=== PATIENT | female | born 1960 | race Caucasian/White ===

== ENCOUNTER 2016-06-06 12:21 | Emergency (ER) | payer OTHER, MEDICAID ==
[~2016-06-06] VITALS: Ht 154.9 cm; Wt 59.0 kg
[2016-06-06 12:36] VITALS: BP 168/81; PULSE 91; RESP 20; TEMP 97.8; O2SAT 100
--- NOTE | 2016-06-06 12:45 | NUR ---
Pt placed to ER waiting room in stable condition. Family members with pt.
[2016-06-06] MEDS ORDERED: DIPH-TET-PERTUS Vaccine 0.5 ML VIAL (ADACEL) I.M. ONE (13:30)
[2016-06-06] MEDS ORDERED: LORazepam 2 MG/ML VIAL (FOR ER USE) IM ONE ×2 (13:30→14:45)
--- NOTE | 2016-06-06 14:00 | NUR ---
PT. PLACED IN ROOM 6, ASSUMED CARE, PT. WAS BROUGHT IN BY ADMIN OF THE RESIDENCE S/P FALL LAC TO BACK OF HER HEAD RIGHT SIDED, PER FEMALE ADMIN PT. FELL AT 1115 THIS MORNING IN THE KITCHEN, NO ACUTE DISTRESS NOTED, PT. SEEMS A BIT AGIGATED OTHERWISE STABLE
--- NOTE | 2016-06-06 14:10 | NUR ---
dr. martins at bedside examining the pt.
--- NOTE | 2016-06-06 14:15 | NUR ---
PAIN MEDICATED TOLERATED WELL, NO DISTRESS NOTED
--- NOTE | 2016-06-06 14:24 | NUR ---
PT. OUT TO HEAD CT VIA GINO WITH RAY
[2016-06-06] MEDS ORDERED: BACITRACIN 1 GM OINT TP ONE (14:30)
--- NOTE | 2016-06-06 14:35 | NUR ---
pt. back from ct via wheelchair, calm and cooperative
[2016-06-06 15:20] VITALS: BP 132/67; PULSE 71; RESP 15; TEMP 97.9; O2SAT 98
--- NOTE | 2016-06-06 15:20 | NUR ---
Patient given written and verbal discharge instructions and verbalizes understanding. ER MD DR. CHAVEZ discussed with patient the results and treatment provided. Patient in stable condition. ID arm band removed. no Rx given. Patient educated on pain management and to follow up with PMD. Pain Scale 0/10 Opportunity for questions provided and answered.
== END 2016-06-06 15:20 | disposition home or self-care (01) ==
LOC: SED 12:21
DX: S01.01XA Laceration without foreign body of scalp, initial encounter (principal); W01.190A Fall on same level from slipping, tripping and stumbling with subsequent striking against furniture, initial encounter; Y93.89 Activity, other specified; Y92.89 Other specified places as the place of occurrence of the external cause; Y99.8 Other external cause status
CPT/HCPCS: 12002; 70450; 90471; 90715; 96372; 99284; J2060

== ENCOUNTER 2017-03-02 14:15 | Emergency (ER) | payer OTHER, MEDICAID ==
[~2017-03-02] VITALS: Ht 157.5 cm; Wt 68.9 kg
[2017-03-02 14:15] VITALS: BP_SYST 157
[2017-03-02 15:50] VITALS: BP_SYST 126
== END 2017-03-02 15:50 | disposition home or self-care (01) ==
LOC: SED 14:15
DX: S50.352A Superficial foreign body of left elbow, initial encounter (principal); L03.114 Cellulitis of left upper limb; F41.9 Anxiety disorder, unspecified; X58.XXXA Exposure to other specified factors, initial encounter; Y93.89 Activity, other specified; Y92.89 Other specified places as the place of occurrence of the external cause; Y99.8 Other external cause status
CPT/HCPCS: 99284

== ENCOUNTER 2017-04-16 17:36 | Emergency (ER) | payer OTHER, MEDICAID ==
[~2017-04-16] VITALS: Ht 162.6 cm; Wt 69.9 kg
[2017-04-16 17:45] VITALS: BP_SYST 163
[2017-04-16] MEDS ORDERED: BACITRACIN 1 GM OINT TP ONE (18:30)
== END 2017-04-16 18:47 | disposition home or self-care (01) ==
LOC: SED 17:36
DX: S01.01XA Laceration without foreign body of scalp, initial encounter (principal); F41.9 Anxiety disorder, unspecified; R03.0 Elevated blood-pressure reading, without diagnosis of hypertension; Z86.59 Personal history of other mental and behavioral disorders; W18.30XA Fall on same level, unspecified, initial encounter; Y93.89 Activity, other specified; Y92.89 Other specified places as the place of occurrence of the external cause; Y99.8 Other external cause status
CPT/HCPCS: 99283

== ENCOUNTER 2018-05-04 09:01 | Emergency (ER) | payer OTHER, MEDICAID ==
[~2018-05-04] VITALS: Ht 160 cm; Wt 68.0 kg
[2018-05-04 09:05] VITALS: BP_SYST 155
[2018-05-04] MEDS ORDERED: LORazepam 2 MG/ML VIAL (FOR ER USE) IM ONE (09:30)
[2018-05-04] MEDS ORDERED: HALOPERIDOL LACTATE 5 MG/ML VIAL ONE (09:44)
[2018-05-04] MEDS ORDERED: DIPHENHYDRAMINE INJ 50 MG/ML VIAL IM ONE ×2 (09:45→10:00)
[2018-05-04] MEDS ORDERED: HALOPERIDOL LACTATE 5 MG/ML VIAL IM ONE ×2 (09:45→10:00)
[2018-05-04] MEDS ORDERED: GASTROGRAFIN 120 ML ONE (10:44)
[2018-05-04 11:52] VITALS: BP_SYST 152
== END 2018-05-04 11:52 ==
LOC: SED 09:01
DX: Z41.3 Encounter for ear piercing (principal); F41.9 Anxiety disorder, unspecified; I48.91 Unspecified atrial fibrillation
CPT/HCPCS: 43762; 74240; 96372; 99284; J1200; J1630; J2060; Q9963

== ENCOUNTER 2020-11-29 14:03 | Inpatient (IN) | payer OTHER, MEDICAID, SELFPAY ==
[~2020-11-29] VITALS: Ht 160 cm; Wt 79.1 kg
[2020-11-29 14:10] VITALS: BP_SYST 148
--- NOTE | 2020-11-29 14:15 | NUR ---
Patient to ER bed 6 to gown for evaluation. Side rails up.
--- NOTE | 2020-11-29 14:20 | NUR ---
PT BIB HER MOTHER FOR INCREASING SOB AND LETHARGY SINCE TODAY IN THE AM. PT LIVES AT A [facility] AND THE STAFF AT THE HOME NOTICED THAT THE PT LABORED BREATHING AND WAS LESS ACTIVE THAN USUAL. UPON ARRIVAL PT'S O2 SAT WAS 78-88% ON RA. PT HAS A PRODUCTIVE COUGH. CURRENT OS SAT IS REMAINS AT 88% ON A 100% NON-RBREATHER.
--- NOTE | 2020-11-29 14:21 | NUR ---
ER at bedside examining patient.
--- NOTE | 2020-11-29 14:22 | NUR ---
# 20 gauge angiocath placed to lac. Use of asceptic technique. Opsite placed over site. Blood return noted. Blood for lab drawn from site. Flushed with 10 cc of normal saline. No evidence of infiltration noted. Patient tolerated well.
--- NOTE | 2020-11-29 14:34 | NUR ---
covid and mrsa swab performed at bedside
--- NOTE | 2020-11-29 14:42 | NUR ---
CURRENT O2 SAT IS 94% ON 100% NON-REBREATHER
[2020-11-29 14:43] LABS: BASOPHILS % (AUTO) 0.2 % (0.0-2.0); EOSINOPHILS # (AUTO) 0.1 K/uL (0.0-0.4); EOSINOPHILS % (AUTO) 0.5 % (0.0-4.0); HEMATOCRIT 43.2 % (36-48); HEMOGLOBIN 13.5 g/dL (12.0-16.0); LYMPHOCYTES # (AUTO) 2.1 K/uL (1.0-5.5); LYMPHOCYTES % (AUTO) 18.8 % (20.5-51.5); MEAN CORPUSCULAR HEMOGLOBIN 24 pg (27-31); MEAN CORPUSCULAR HGB CONC 31 % (32-36); MEAN CORPUSCULAR VOLUME 77 fL (79.0-98.0); MONOCYTES # (AUTO) 1.1 K/uL (0.0-1.0); MONOCYTES % (AUTO) 10.4 % (1.7-9.3); NEUTROPHILS # (AUTO) 7.7 K/uL (1.8-7.7); NEUTROPHILS % (AUTO) 70.1 % (40.0-70.0); PLATELET COUNT (AUTO) 209 K/uL (130-430); RED CELL DISTRIBUTION WIDTH 17.4 % (9.0-15.0)
[2020-11-29] MEDS ORDERED: NACL 0.9% 1,000 ML IV ONE (14:45)
--- NOTE | 2020-11-29 14:52 | NUR ---
RT AT THE BEDSIDE
--- NOTE | 2020-11-29 14:52 | NUR ---
MRSA swab at bedside, sent to lab
[2020-11-29 14:57] LABS: INR 1.1 (0.8-1.2); PROTHROMBIN TIME 11.3 SECS (9.5-12.5)
[2020-11-29] MEDS ORDERED: IPRATROPIUM/ALBUTEROL SULFATE 3 ML AMPUL.NEB (DUONEB) ONE (14:58)
--- NOTE | 2020-11-29 15:10 | NUR ---
# 16 FR Camacho catheter with use of sterile technique. Immediate return of 50 cc yellow urine noted. Bedside drainage bag placed below level of bladder. Urine sample collected and sent to lab. Pt tolerated procedure well. Patient arrived with camacho in place, changed due to standard of practice prior to admission. Patient unable to toilet self.
--- NOTE | 2020-11-29 15:17 | NUR ---
pt placed on Bipap 12/5, 100% Fio2
[2020-11-29] MEDS ORDERED: ASPI-1155 PO (15:40)
[2020-11-29] MEDS ORDERED: SENN8.6T19 PO (15:40)
[2020-11-29] MEDS ORDERED: SERT25TA PO (15:40)
[2020-11-29] MEDS ORDERED: CICL90CR10 TP (15:40)
[2020-11-29] MEDS ORDERED: LEVO125T PO (15:40)
[2020-11-29] MEDS ORDERED: LACT1CAP89 PO (15:40)
[2020-11-29] MEDS ORDERED: METO-442 PO (15:40)
[2020-11-29] MEDS ORDERED: CRAN450T9 PO (15:40)
[2020-11-29] MEDS ORDERED: [UNRECOGNIZED DRUG - CODE] PO (15:40)
[2020-11-29] MEDS ORDERED: PYRI100T22 PO (15:40)
[2020-11-29] MEDS ORDERED: LORA-258 PO (15:40)
[2020-11-29] MEDS ORDERED: RESEYE OP (15:40)
[2020-11-29] MEDS ORDERED: MELA5TAB12 PO (15:40)
[2020-11-29] MEDS ORDERED: LOP600 PO (15:40)
[2020-11-29] MEDS ORDERED: COLL100 PO (15:40)
[2020-11-29] MEDS ORDERED: CHOL500051 PO (15:40)
[2020-11-29] MEDS ORDERED: DIGO125T PO (15:40)
[2020-11-29] MEDS ORDERED: OMEP20CA15 PO (15:40)
[2020-11-29] MEDS ORDERED: DIVA250T PO (15:40)
[2020-11-29] MEDS ORDERED: TORBREX OP (15:41)
[2020-11-29] MEDS ORDERED: ACET-73 PO (15:41)
[2020-11-29] MEDS ORDERED: OLAN2.5T29 PO (15:41)
[2020-11-29] MEDS ORDERED: PHEDM120 PO (15:41)
--- NOTE | 2020-11-29 15:41 | NUR ---
Medication reconciliation completed with information provided by pt's mother. Any prior medication reconciliation on file was reviewed and corrected.
[2020-11-29] MEDS ORDERED: AZITHROMYCIN 500 MG in NS 250 ML IV ONE (15:45)
[2020-11-29] MEDS ORDERED: PIPERACILLIN/TAZO 3.375 GM in NS 50 ML IV ONE (15:45)
[2020-11-29] MEDS ORDERED: VANCOMYCIN HCL 1,000 MG in NS 250 ML IV ONE (15:45)
[2020-11-29 15:50] LABS: DIGOXIN 0.7 ng/mL (0.80-2.00)
[2020-11-29 15:51] LABS: CALCIUM 8.7 mg/dL (8.4-11.0); CREATININE 0.83 mg/dL (0.55-1.30); TOTAL BILIRUBIN 0.3 mg/dL (0.0-1.0)
[2020-11-29 15:52] LABS: ALBUMIN 3.5 g/dL (3.4-4.8)
[2020-11-29] MEDS ORDERED: PIPERACILLIN/TAZOBACTAM 3.375 GM/VIAL (ZOSYN) IV ONE (15:57)
[2020-11-29] MEDS ORDERED: AZITHROMYCIN 500 MG/VIAL (ZITHROMAX) IV ONE (15:58)
[2020-11-29] MEDS ORDERED: VANCOMYCIN HCL 1000 MG/VIAL IV ONE (16:15)
[2020-11-29 16:35] LABS: BILIRUBIN,URINE NEGATIVE (NEGATIVE); BLOOD, URINE NEGATIVE (NEGATIVE); COLOR,URINE YELLOW (YELLOW); GLUCOSE,URINE NEGATIVE (NEGATIVE); KETONES,URINE NEGATIVE (NEGATIVE); LEUKOCYTE ESTERASE ,URINE 2+ (NEGATIVE); NITRITE, URINE NEGATIVE (NEGATIVE); PROTEIN URINE TRACE (NEGATIVE); UROBILINOGEN,URINE 0.2 (0.2-1.0)
[2020-11-29 16:50] LABS: CLARITY/URINE HAZY (CLEAR)
[2020-11-29 17:00] LABS: RBC,URINE 0-3 /HPF (0-3)
[2020-11-29 17:01] LABS: BACTERIA,URINE MANY /HPF (None Seen)
[2020-11-29 17:05] LABS: MUCUS,URINE 1+ /LPF (None Seen)
--- NOTE | 2020-11-29 17:10 | NUR ---
ADMISSION ORDERS RECEIVED FROM DR. LOZANO
[2020-11-29] MEDS ORDERED: D5/0.45 NS 1,000 ML IV SCH (17:15)
[2020-11-29] MEDS ORDERED: AZITHROMYCIN 500 MG in NS 250 ML IV SCH (17:15)
[2020-11-29] MEDS ORDERED: ENOXAPARIN SODIUM 80 MG/0.8 ML SYRINGE SUBCUT ONE (17:15)
[2020-11-29] MEDS ORDERED: D5NS 500 ML IV SCH (18:00)
[2020-11-29] MEDS ORDERED: IPRATROPIUM/ALBUTEROL SULFATE 3 ML AMPUL.NEB (DUONEB) INH PRN (18:00)
[2020-11-29] MEDS ORDERED: D5NS 1,000 ML IV SCH (19:00)
--- NOTE | 2020-11-29 19:20 | NUR ---
report given to Susie GARZA. Pt is currently a PUI ICU hold
--- NOTE | 2020-11-29 19:32 | NUR ---
Covid-19 PCR swabs collected and sent to lab.
--- NOTE | 2020-11-29 19:49 | NUR ---
ER Hakan Lin at bedside examining patient.
[2020-11-29 20:54] LABS: C-REACTIVE PROTEIN QUANT < 0.2 mg/dL (0-0.5)
[2020-11-29] MEDS: D5NS 1,000 ML IV SCH (21:24)
--- NOTE | 2020-11-29 21:31 | NUR ---
Patient is sleeping, no acute distress.
[2020-11-29] MEDS: methylPREDNISolone SOD SUCC/PF 62.5 MG/ML VIAL IVP SCH (21:56)
--- NOTE | 2020-11-29 22:01 | NUR ---
Re- position patient.
--- NOTE | 2020-11-29 22:14 | NUR ---
Oxygen sat 85-88 % with Bipap FIo2 100 % , called RT to re-set Bipap.
--- NOTE | 2020-11-29 22:28 | NUR ---
Spoke and reported to with Dr. Byrne, telephone order Ativan 1 mg IV stat and prn.
[2020-11-29] MEDS ORDERED: LORazepam 2 MG/ML VIAL ONE (22:46)
--- NOTE | 2020-11-29 23:21 | NUR ---
Re-position patient, Dr. Prasad exam patient at bedside. Oxygen sat 89-91 % with Bipap, patient is sleeping.
[2020-11-29] MEDS ORDERED: FUROSEMIDE 40 MG/4 ML VIAL IVP ONE (23:45)
[2020-11-29] MEDS ORDERED: DILTIAZEM HCL 25 MG/5 ML VIAL IVP ONE (23:45)
--- NOTE | 2020-11-30 00:09 | NUR ---
Started Dilitiazem 10 mg IV as order by Dr. Prasad.
--- NOTE | 2020-11-30 00:19 | NUR ---
HR 87, BP 107/69, RR 28, Oxygen sat 94 % with Bipap 100 % .
[2020-11-30 00:44] VITALS: BP_SYST 106
[2020-11-30] MEDS: IPRATROPIUM/ALBUTEROL SULFATE 3 ML AMPUL.NEB (DUONEB) INH SCH ×4 (01:00→19:00)
[2020-11-30] MEDS: PIPERACILLIN/TAZO 3.375/DEX-IS 50 ML IV SCH ×4 (01:09→17:56)
[2020-11-30] MEDS ORDERED: PIPERACILLIN/TAZOBACTAM 3.375 GM/VIAL (ZOSYN) IV ONE ×2 (01:10→06:06)
--- NOTE | 2020-11-30 01:16 | NUR ---
Patient resting quietly. No acute distress noted. Vital signs within normal range.
[2020-11-30] MEDS ORDERED: IOHEXOL 350 mgI/mL, 150 ML INFUS..BTL IV ONE (01:46)
--- NOTE | 2020-11-30 02:18 | NUR ---
Patient came back from CT scan with surgical technology instructor and RN.
--- NOTE | 2020-11-30 02:20 | NUR ---
Re-peat EKG at bedside by EMT.
--- NOTE | 2020-11-30 02:24 | NUR ---
Empty urine bag 700 ML
--- NOTE | 2020-11-30 03:21 | NUR ---
Patient is sleeping, no acute distress.
--- NOTE | 2020-11-30 06:27 | NUR ---
Patient resting quietly. No acute distress noted. Vital signs within normal range.
[2020-11-30] MEDS: methylPREDNISolone SOD SUCC/PF 62.5 MG/ML VIAL IVP SCH ×3 (06:30→20:00)
--- NOTE | 2020-11-30 06:40 | NUR ---
Empty urine bag 680 ML.
[2020-11-30] MEDS ORDERED: VANCOMYCIN HCL 1000 MG/VIAL IV ONE (08:25)
[2020-11-30] MEDS: D5NS 1,000 ML IV SCH ×2 (08:27→20:00)
[2020-11-30] MEDS: VANCOMYCIN HCL 1,000 MG in NS 250 ML IV SCH ×2 (08:28→20:00)
--- NOTE | 2020-11-30 08:39 | NUR ---
Paged Dr. Byrne to inform him of ABG results.
[2020-11-30 08:41] LABS: BASOPHILS % (AUTO) 0.2 % (0.0-2.0); HEMATOCRIT 41.8 % (36-48); HEMOGLOBIN 12.8 g/dL (12.0-16.0); LYMPHOCYTES # (AUTO) 0.9 K/uL (1.0-5.5); LYMPHOCYTES % (AUTO) 6.8 % (20.5-51.5); MEAN CORPUSCULAR HEMOGLOBIN 24 pg (27-31); MEAN CORPUSCULAR HGB CONC 31 % (32-36); MEAN CORPUSCULAR VOLUME 78 fL (79.0-98.0); MONOCYTES # (AUTO) 0.3 K/uL (0.0-1.0); NEUTROPHILS # (AUTO) 12.7 K/uL (1.8-7.7); PLATELET COUNT (AUTO) 171 K/uL (130-430); RED BLOOD CELL COUNT(AUTO) 5.33 MIL/uL (4.2-6.2); RED CELL DISTRIBUTION WIDTH 17.8 % (9.0-15.0); WHITE BLOOD COUNT (AUTO) 13.9 K/uL (4.8-10.8)
[2020-11-30] MEDS: PANTOPRAZOLE SODIUM 40 MG/VIAL (PROTONIX) IVP SCH (08:45)
--- NOTE | 2020-11-30 08:52 | NUR ---
chest xray done at bedside, spoke with Dr. Byrne orders to change setting on bipap
[2020-11-30] MEDS ORDERED: PIPERACILLIN/TAZO 3.375/DEX-IS 50 ML IV SCH (09:00)
[2020-11-30 09:40] LABS: CREATININE 0.94 mg/dL (0.55-1.30); POTASSIUM 4.4 mmol/L (3.5-5.1)
--- NOTE | 2020-11-30 09:46 | NUR ---
rt notes 0946 per ABG results, Dr. Byrne ordered IPAP-EPAP settings to 20/8. Pt tolerating bipap changes, will continue to monitor pt. pt saturating 97%. RN Mary aware of changes.
[2020-11-30 09:59] LABS: ALBUMIN 2.9 g/dL (3.4-4.8); PHOSPHORUS 4.1 mg/dL (2.7-4.5); TOTAL BILIRUBIN 0.3 mg/dL (0.0-1.0)
[2020-11-30 10:35] LABS: C-REACTIVE PROTEIN QUANT 5.6 mg/dL (0-0.5)
--- NOTE | 2020-11-30 11:01 | NUR ---
mother at bedside, POC reviewed
[2020-11-30] MEDS: LORazepam 2 MG/ML VIAL IVP PRN ×2 (14:04→22:19)
--- NOTE | 2020-11-30 14:15 | NUR ---
Positioned pt. from [facility] to hospital bed for comfort, became mildly agitated, ativan given, mother remains at bedside.
--- NOTE | 2020-11-30 15:16 | NUR ---
Emptied 250 ml. urine, pt. calm visiting with mom
[2020-11-30] MEDS: AZITHROMYCIN 500 MG in NS 250 ML IV SCH (15:37)
--- NOTE | 2020-11-30 19:04 | NUR ---
emptied 60 ml of urine, will endorse to on coming shift.
--- NOTE | 2020-11-30 19:15 | NUR ---
REPORT RECEIVED FROM ISIS GARZA. PT IS CURRENTLY ON BIPAP 19/11, 90% FIO2. IV SITE IS TO THE LAC 20G PATENT AND INFUSING WELL. KLEIN CATH IS TO GRAVITY DRAINING YELLOW URINE. PT IS A-FIB ON THE MONITOR W/ A RATE OF 128.
--- NOTE | 2020-11-30 22:10 | NUR ---
medicated the pt w/ Ativan 1mg
--- NOTE | 2020-11-30 23:30 | NUR ---
Report recieved from KAYLA De Leon for continuation of care.
--- NOTE | 2020-11-30 23:35 | NUR ---
care endorsed to Manoj GARZA
[2020-12-01] VITALS (10 sets, daily range): BP systolic 96–123
[2020-12-01] MEDS: PIPERACILLIN/TAZO 3.375/DEX-IS 50 ML IV SCH ×4 (00:03→18:03)
--- NOTE | 2020-12-01 01:15 | NUR ---
Heart rate reported to Dr. Leon, orders recieved.
[2020-12-01] MEDS: IPRATROPIUM/ALBUTEROL SULFATE 3 ML AMPUL.NEB (DUONEB) INH SCH ×4 (01:26→19:53)
[2020-12-01] MEDS: LORazepam 2 MG/ML VIAL IVP PRN ×3 (02:06→14:46)
--- NOTE | 2020-12-01 02:53 | NUR ---
Heart rate reported to Dr. Leon, orders recieved.
[2020-12-01] MEDS ORDERED: NACL 0.9% 1,000 ML IV ONE ×2 (03:00→05:15)
--- NOTE | 2020-12-01 05:02 | NUR ---
Heart rate reported to Dr. Leon. Orders received.
--- NOTE | 2020-12-01 06:00 | NUR ---
300 mL of urine removed from camacho catheter.
[2020-12-01] MEDS: methylPREDNISolone SOD SUCC/PF 62.5 MG/ML VIAL IVP SCH ×3 (06:09→21:03)
[2020-12-01 06:53] LABS: BASOPHILS % (AUTO) 0.1 % (0.0-2.0); HEMATOCRIT 39.8 % (36-48); HEMOGLOBIN 11.7 g/dL (12.0-16.0); LYMPHOCYTES # (AUTO) 1.1 K/uL (1.0-5.5); MEAN CORPUSCULAR HEMOGLOBIN 23 pg (27-31); MEAN CORPUSCULAR HGB CONC 29 % (32-36); MEAN CORPUSCULAR VOLUME 80 fL (79.0-98.0); MONOCYTES # (AUTO) 0.7 K/uL (0.0-1.0); MONOCYTES % (AUTO) 5.2 % (1.7-9.3); NEUTROPHILS % (AUTO) 86.7 % (40.0-70.0); PLATELET COUNT (AUTO) 145 K/uL (130-430); RED CELL DISTRIBUTION WIDTH 17.7 % (9.0-15.0); WHITE BLOOD COUNT (AUTO) 13.8 K/uL (4.8-10.8)
[2020-12-01 07:11] LABS: CALCIUM 7.4 mg/dL (8.4-11.0); CREATININE 0.84 mg/dL (0.55-1.30); PHOSPHORUS 3.8 mg/dL (2.7-4.5)
--- NOTE | 2020-12-01 07:17 | NUR ---
Report given to KAYLA Garcia for continuation of care.
--- NOTE | 2020-12-01 07:31 | NUR ---
REPORT RECEIVED, PT LAYING IN BED, MOVING IN BED, OXYGEN TUBE OFF, IV BEEPING, ON BIPAP AT 84%. RT CALLED FOR ABGS. REPOSITIONED FOR COMFORT. APPLIED ARM BOARD TO DECREASE MOEVEMENT FOR IV TO INFUSE PROPERLY. MEDS INFUSING ORDERED. PT CONTINUES TO BE TACHYCARDIC, AT 156BPM. AWARE, MD PAGED FOR CARDIAC CONSULT. PRABHU GRIER.
[2020-12-01] MEDS: VANCOMYCIN HCL 1,000 MG in NS 250 ML IV SCH ×2 (09:59→20:50)
[2020-12-01] MEDS ORDERED: VANCOMYCIN HCL 1000 MG/VIAL IV ONE (09:59)
[2020-12-01] MEDS: PANTOPRAZOLE SODIUM 40 MG/VIAL (PROTONIX) IVP SCH (09:59)
--- NOTE | 2020-12-01 10:58 | NUR ---
MEDICATED ORDERED WITH ATIVAN FOR AGITATION, PT CONTINUES TO MOVE IN BED AND REMOVE OXYGEN TUBE FROM BIPAP. IV FLUIDS INFUSING WELL TO LEFT AC.
--- NOTE | 2020-12-01 11:12 | NUR ---
RT AT BEDSIDE, PT CONTINUES TO REMOVE OXYGEN TUBE, RT APPLYING MORE TAPE FOR BETTER SECURE. ON BIPAP-100%
[2020-12-01] MEDS: D5NS 1,000 ML IV SCH (12:00)
--- NOTE | 2020-12-01 12:17 | NUR ---
DR RUSSELL AMSWERED PAGE, HE WAS NOTFIE OF CXR RESULTS OF TODAY. CT CHEST ORDERED. MOM AT BEDSIDE. RT ALSO WAS CALLED SINCE OCYGEN TUBE KEEPS FALLING OFF.
--- NOTE | 2020-12-01 12:25 | NUR ---
CTA CHEST WITH CONTRAST DONE ON 11/29, DR RUSSELL AWARE. NO NEED FOR FURTHER CT CHEST.
[2020-12-01] MEDS: ENOXAPARIN SODIUM 80 MG/0.8 ML SYRINGE SUBCUT SCH ×2 (13:21→20:48)
--- NOTE | 2020-12-01 14:02 | NUR ---
PT TRANSFERRED TO ICU-6, REPORT GIVEN TO RAMIREZ GARZA. ALLBELONGINGS WITH PT, MOM LEFT TO LUNCH AND WILL RETURN BACK. VSS, RT AT BEDSIDE. IV FLUIDS INFUSING WELL TO LEFT AC.
--- NOTE | 2020-12-01 14:17 | NUR ---
TRANSFER TO ICU BED 6 REPORT RC'VD FROM [employer] AT BEDSIDE, PATIENT PLACED ONTO MONITOR, RT AT BEDSIDE, BED LOW AND LOCKED FOR SAFETY, KLEIN CATHETER IN PLACE AND DRAINING DARK DENNISE URINE, PATIENT IS NONE VERBAL. NO FAMILY AT BEDSIDE TO OBTAIN INFORMATION AT THIS TIME.
--- NOTE | 2020-12-01 15:01 | NUR ---
CONSULT CARDIO. CONSULTING MD: DR. CAIN PERSON NOTIFIED: DORA DIALED: [phone] ORDERED BY: DR. LOZANO
--- NOTE | 2020-12-01 15:04 | NUR ---
SPOKE WITH DR. LOZANO, NEW ORDERS OBTAINED.
[2020-12-01] MEDS ORDERED: DILTIAZEM HCL 25 MG/5 ML VIAL IVP ONE (15:15)
--- NOTE | 2020-12-01 15:20 | NUR ---
MOTHER AT BEDSIDE. ALL QUESTIONS ANSWERED AT THIS TIME.
--- NOTE | 2020-12-01 15:25 | NUR ---
PICC LINE CONSENT OBTAINED FROM MOTHER, PENDING PLACEMENT AT THIS TIME.
--- NOTE | 2020-12-01 15:53 | NUR ---
LAB AT BEDSIDE PERFORMING LAB DRAW.
[2020-12-01] MEDS: AZITHROMYCIN 500 MG in NS 250 ML IV SCH (16:02)
[2020-12-01 16:53] LABS: INR 1.2 (0.8-1.2)
--- NOTE | 2020-12-01 18:36 | NUR ---
DAUGHTER JOSE RAMON CALLED AGAIN FOR DAD'S UPDATE. PT'S STATUS WAS GIVEN TO HER. PT GOT MORE ALLERT AFTER FLUID D5 WATER 150ML/HR TO INFUSE. BP WAS STABILIZE AND LEVEPHEDTRIED TO TITRIP OFF BUT FAILY. LEVOPHED RUNNING ON 0.02MCG/KG/MIN. Addendum: 12/01/20 at 1903 by [employer] sash sticker JACOB MIRELES
--- NOTE | 2020-12-01 18:59 | NUR ---
CLOSING NOTE: SBAR REPORT GIVEN TO NOC NURSE, ALL CARES ENDORSED.
[2020-12-02] VITALS (24 sets, daily range): BP systolic 105–160
[2020-12-02] MEDS ORDERED: levalbuterol HCL 0.63 MG/3 ML VIAL.NEB INH PRN
[2020-12-02] MEDS: PIPERACILLIN/TAZO 3.375/DEX-IS 50 ML IV SCH ×4 (00:04→17:00)
[2020-12-02] MEDS: DILTIAZEM HCL 25 MG/5 ML VIAL IVP PRN ×3 (00:05→09:34)
[2020-12-02] MEDS ORDERED: DILTIAZEM HCL 25 MG/5 ML VIAL ONE (00:05)
[2020-12-02] MEDS: D5NS 1,000 ML IV SCH ×5 (00:13→23:27)
[2020-12-02] MEDS: levalbuterol HCL 0.63 MG/3 ML VIAL.NEB INH SCH ×4 (01:09→19:30)
--- NOTE | 2020-12-02 01:32 | NUR ---
2200 Shes more awake keep removing her BIPAP BY DISCONNECTING THE TUBING. called Rt joriyuri to try to give her break and switch to HFNC S/B DR Byrne with orders made, 2330 AFIB RVR HR-[id number] Byrne ordered Cardizem 5mg IVP Q4H PRN for HR->120. 0030 S/B DR LEBLANC no new orders.
[2020-12-02] MEDS: methylPREDNISolone SOD SUCC/PF 62.5 MG/ML VIAL IVP SCH ×3 (06:31→23:02)
--- NOTE | 2020-12-02 06:37 | NUR ---
[id number] DOWNTIME CHARTING SEE PRINT OUT ON CHART.
--- NOTE | 2020-12-02 06:47 | NUR ---
Nutrition Update Armanod Scale 14 noted. Pt admitted for Acute Respiratory Failure, Sepsis Diet: no diet order BMI: 31.2 kg/m2 RD to follow per nutrition care standards.
--- NOTE | 2020-12-02 07:08 | NUR ---
OPENING NOTE: REPORT RV'CD AT BEDSIDE FROM OUTGOING RN, PATIENT RC'VD IN BED IN NO ACUTE DISTRESS AND OR DISCOMFORT. BED LOW AND LOCKED FOR SAFETY, ALL CARES ASSUMED.
[2020-12-02] MEDS: VANCOMYCIN HCL 1,000 MG in NS 250 ML IV SCH (07:15)
[2020-12-02 07:50] LABS: BASOPHILS % (AUTO) 0.2 % (0.0-2.0); HEMATOCRIT 37.8 % (36-48); HEMOGLOBIN 11.4 g/dL (12.0-16.0); LYMPHOCYTES # (AUTO) 0.9 K/uL (1.0-5.5); LYMPHOCYTES % (AUTO) 6.9 % (20.5-51.5); MEAN CORPUSCULAR HEMOGLOBIN 24 pg (27-31); MEAN CORPUSCULAR HGB CONC 30 % (32-36); MEAN CORPUSCULAR VOLUME 78 fL (79.0-98.0); MONOCYTES # (AUTO) 0.7 K/uL (0.0-1.0); MONOCYTES % (AUTO) 5.2 % (1.7-9.3); NEUTROPHILS # (AUTO) 11.2 K/uL (1.8-7.7); NEUTROPHILS % (AUTO) 87.7 % (40.0-70.0); PLATELET COUNT (AUTO) 182 K/uL (130-430); RED BLOOD CELL COUNT(AUTO) 4.82 MIL/uL (4.2-6.2); RED CELL DISTRIBUTION WIDTH 17.9 % (9.0-15.0); WHITE BLOOD COUNT (AUTO) 12.8 K/uL (4.8-10.8)
--- NOTE | 2020-12-02 08:41 | NUR ---
DR. CAIN MAKING ROUNDS, CALLED MOTHER TO DISCUSS PLAN OF CARE, NEW ORDERS PLACED BY MD.
[2020-12-02] MEDS ORDERED: METOPROLOL TARTRATE 5 MG/5 ML AMPUL IVP PRN (08:45)
[2020-12-02] MEDS: PANTOPRAZOLE SODIUM 40 MG/VIAL (PROTONIX) IVP SCH (08:50)
[2020-12-02] MEDS: ENOXAPARIN SODIUM 80 MG/0.8 ML SYRINGE SUBCUT SCH ×2 (08:51→22:59)
[2020-12-02] MEDS ORDERED: DIGOXIN 0.5 MG/2 ML AMP IVP ONE (09:00)
[2020-12-02 09:37] LABS: CALCIUM 7.7 mg/dL (8.4-11.0); CREATININE 1.01 mg/dL (0.55-1.30); PHOSPHORUS 3.2 mg/dL (2.7-4.5); POTASSIUM 4.8 mmol/L (3.5-5.1)
--- NOTE | 2020-12-02 09:37 | NUR ---
PERFORMANCE TESTER AT BEDSIDE, PATIENT TOLERATING EXAM WELL.
--- NOTE | 2020-12-02 09:47 | NUR ---
CARDIZEM GIVEN FOR HR 133 AFIB WITH PVC, DR. CAIN AWARE, NO NEW ORDERS.
[2020-12-02 10:01] LABS: FREE T4 (FREE THYROXINE) 0.6 ng/dL (0.6-1.6); THYROID STIMULATING HORMONE 0.21 uIu/mL (0.34-4.82)
--- NOTE | 2020-12-02 11:05 | NUR ---
Dietitian Recommendations *Recommend: advance diet per ST rec. Add ONS chocolate flavor once diet is advanced. Please see Nutritional Assessment for details. GE BOO
--- NOTE | 2020-12-02 11:15 | NUR ---
MOTHER AT BEDSIDE, VERBAL UPDATE GIVEN AND ALL QUESTIONS ANSWERED.
--- NOTE | 2020-12-02 11:32 | NUR ---
MARCO GUZMAN. CALLED [facility] LEFT A VOICE MESSAGE, WAITING FOR CALL BACK. DIALED: [phone]
--- NOTE | 2020-12-02 11:34 | NUR ---
DR. CAIN RETURNED PAGE, NEW ORDERS OBTAINED AND TRANSCRIBED FOLLOWS: CARDIZEM IV Push(DILTIAZEM HCL 25 MG/5 ML VIAL) 10MG
[2020-12-02] MEDS: LORazepam 2 MG/ML VIAL IVP PRN (14:52)
[2020-12-02] MEDS: AZITHROMYCIN 500 MG in NS 250 ML IV SCH (15:21)
--- NOTE | 2020-12-02 15:21 | NUR ---
PICC NURSE AT BEDSIDE PERFORMING INSERTION UNDER ULTRASOUND.
--- NOTE | 2020-12-02 16:47 | NUR ---
X-RAY HAS CONFIRMED PICC PLACEMENT, OKAY TO USE.
--- NOTE | 2020-12-02 18:55 | NUR ---
CLOSING NOTE: SBAR REPORT GIVEN TO NOC NURSE, ALL CARES ENDORSED.
--- NOTE | 2020-12-02 21:00 | NUR ---
Received report from PM nurse using SBAR approach.
[2020-12-02] MEDS: VANCOMYCIN HCL 750 MG/NS 250 ML IV SCH (22:54)
[2020-12-03] VITALS (26 sets, daily range): BP systolic 114–154
[2020-12-03] MEDS: PIPERACILLIN/TAZO 3.375/DEX-IS 50 ML IV SCH ×4 (00:33→19:00)
[2020-12-03] MEDS: levalbuterol HCL 0.63 MG/3 ML VIAL.NEB INH SCH ×4 (01:15→20:33)
[2020-12-03] MEDS: D5NS 1,000 ML IV SCH ×2 (04:56→15:00)
[2020-12-03] MEDS: methylPREDNISolone SOD SUCC/PF 62.5 MG/ML VIAL IVP SCH ×3 (06:37→22:31)
[2020-12-03 06:43] LABS: HEMATOCRIT 38.2 % (36-48); HEMOGLOBIN 11.6 g/dL (12.0-16.0); LYMPHOCYTES # (AUTO) 0.7 K/uL (1.0-5.5); LYMPHOCYTES % (AUTO) 8.3 % (20.5-51.5); MEAN CORPUSCULAR HEMOGLOBIN 24 pg (27-31); MEAN CORPUSCULAR HGB CONC 30 % (32-36); MEAN CORPUSCULAR VOLUME 79 fL (79.0-98.0); MONOCYTES # (AUTO) 0.2 K/uL (0.0-1.0); MONOCYTES % (AUTO) 3.1 % (1.7-9.3); NEUTROPHILS % (AUTO) 88.6 % (40.0-70.0); PLATELET COUNT (AUTO) 179 K/uL (130-430); RED BLOOD CELL COUNT(AUTO) 4.85 MIL/uL (4.2-6.2); WHITE BLOOD COUNT (AUTO) 7.9 K/uL (4.8-10.8)
[2020-12-03 07:07] LABS: ALBUMIN 2.6 g/dL (3.4-4.8); CALCIUM 7.8 mg/dL (8.4-11.0); CREATININE 0.97 mg/dL (0.55-1.30); POTASSIUM 4.6 mmol/L (3.5-5.1); THYROID STIMULATING HORMONE 0.13 uIu/mL (0.36-3.74); TOTAL BILIRUBIN 0.3 mg/dL (0.0-1.0)
[2020-12-03] MEDS: PANTOPRAZOLE SODIUM 40 MG/VIAL (PROTONIX) IVP SCH (09:24)
[2020-12-03] MEDS: DIGOXIN 0.5 MG/2 ML AMP IVP SCH (09:25)
[2020-12-03] MEDS: VANCOMYCIN HCL 750 MG/NS 250 ML IV SCH (09:26)
[2020-12-03] MEDS: ENOXAPARIN SODIUM 80 MG/0.8 ML SYRINGE SUBCUT SCH ×2 (09:59→22:28)
[2020-12-03] MEDS: LORazepam 2 MG/ML VIAL IVP PRN (12:20)
--- NOTE | 2020-12-03 13:14 | NUR ---
1110 ASSISTED IN TRANSPORTING PT TO 128 B. PLACED BACK ON BIPAP. Addendum: 12/03/20 at 1316 by Gloria Campbell RT Amended: Links added.
[2020-12-03] MEDS: AZITHROMYCIN 500 MG in NS 250 ML IV SCH (16:06)
--- NOTE | 2020-12-03 21:00 | NUR ---
PATIENT WAS ACCEPTED AND ASSESS DONE PATIENT MENTAL CHALL, UNABLE TO FOLLOW COMMANDS SLOW IN THINKING KEPT TRYING TO REMOVED CLOTHING LIKE THE BLANKET EXPOSING SELF NO FEVER HAS AN OXYMIZER INTACT AND TOLERATE WELL SAT AT96-94% NO SOB OR RESP. DISTRESS UNABLE TO DETERMINE IF THE PATIENT CAN MOVED FROM SIDE TO SIDE , WILL GIVEN BATH SOON WILL OPEN EYE SPONTANEOUS WHEN BEING APPROACH NO ENTRIES BODY WAS RED , MAY BE SOME TYPE ALLEGIES REACTION ON TWO ANTIBIOTICS WILL CHECK DATE WHEN START, STABLE
[2020-12-04] VITALS (25 sets, daily range): BP systolic 111–151
[2020-12-04] MEDS: PIPERACILLIN/TAZO 3.375/DEX-IS 50 ML IV SCH ×5 (00:23→23:34)
[2020-12-04] MEDS: levalbuterol HCL 0.63 MG/3 ML VIAL.NEB INH SCH ×4 (02:00→21:01)
[2020-12-04] MEDS: DILTIAZEM HCL 25 MG/5 ML VIAL IVP PRN ×2 (05:40→21:17)
[2020-12-04] MEDS: LORazepam 2 MG/ML VIAL IVP PRN ×3 (05:40→23:34)
[2020-12-04] MEDS: methylPREDNISolone SOD SUCC/PF 62.5 MG/ML VIAL IVP SCH ×3 (06:00→21:17)
--- NOTE | 2020-12-04 07:00 | NUR ---
Received patient on bed, unsedated, awake, nonverbal. afebrile. On oximizer at 12L saturating >95%. F/C intact and dry. ELSIE PICC line intact running D5NS at 50cc/hr. VS WNL. Will continue to monitor.
[2020-12-04 08:30] LABS: BASOPHILS % (AUTO) 0.1 % (0.0-2.0); LYMPHOCYTES # (AUTO) 0.6 K/uL (1.0-5.5); LYMPHOCYTES % (AUTO) 8.3 % (20.5-51.5); MEAN CORPUSCULAR HEMOGLOBIN 24 pg (27-31); MEAN CORPUSCULAR HGB CONC 30 % (32-36); MEAN CORPUSCULAR VOLUME 78 fL (79.0-98.0); MONOCYTES # (AUTO) 0.3 K/uL (0.0-1.0); MONOCYTES % (AUTO) 4.1 % (1.7-9.3); NEUTROPHILS # (AUTO) 6.4 K/uL (1.8-7.7); NEUTROPHILS % (AUTO) 87.5 % (40.0-70.0); PLATELET COUNT (AUTO) 170 K/uL (130-430); RED BLOOD CELL COUNT(AUTO) 4.63 MIL/uL (4.2-6.2); WHITE BLOOD COUNT (AUTO) 7.3 K/uL (4.8-10.8)
[2020-12-04 08:32] LABS: CALCIUM 7.8 mg/dL (8.4-11.0); CREATININE 0.69 mg/dL (0.55-1.30); POTASSIUM 4.2 mmol/L (3.5-5.1)
--- NOTE | 2020-12-04 09:10 | NUR ---
RN NOTES SPOKE TO JACK HAIEDR RESULT RELAYED, WITH ORDERS.
--- NOTE | 2020-12-04 09:31 | NUR ---
ABG forwarded to Dr. Byrne, new order to put patient back to Bipap, repeat ABG at 1240PM
[2020-12-04 09:54] LABS: RED CELL DISTRIBUTION WIDTH 18.1 % (9.0-15.0)
[2020-12-04] MEDS: PANTOPRAZOLE SODIUM 40 MG/VIAL (PROTONIX) IVP SCH (09:55)
[2020-12-04] MEDS: DIGOXIN 0.5 MG/2 ML AMP IVP SCH (09:57)
[2020-12-04] MEDS: ENOXAPARIN SODIUM 80 MG/0.8 ML SYRINGE SUBCUT SCH ×2 (10:02→21:16)
--- NOTE | 2020-12-04 10:10 | NUR ---
RT NOTES 1010 PLACED PT ON BIPAP (20 BUR20 75%), PER ABG RESULTS PER DR RUSSELL'S ORDER. PT LOWELL WELL. SAT 96%.
--- NOTE | 2020-12-04 12:54 | NUR ---
S.T. SWALLOW EVAL ACKNOWLEDGED SWALLOW EVAL ORDER RECEIVED. ATTEMPTED YESTERDAY AND TODAY. PT CONTINUES TO REQUIRE BIPAP. NOT A CANDIDATE FOR EVAL. NURSE PARTH CONCURRED. PLEASE D/C ORDER AT THIS TIME.
[2020-12-04] MEDS: D5NS 1,000 ML IV SCH (13:21)
--- NOTE | 2020-12-04 13:42 | NUR ---
RT NOTES 1342 PT OFF BIPAP PER POST- BIPAP ABG RESULTS, CO2 47. RN KATHI AWARE. WILL CONTINUE TO MONITOR PT.
[2020-12-04] MEDS: AZITHROMYCIN 500 MG in NS 250 ML IV SCH (16:37)
--- NOTE | 2020-12-04 19:20 | NUR ---
Opening note Received report from day shift RN.
[2020-12-04] MEDS ORDERED: ENOXAPARIN SODIUM 80 MG/0.8 ML SYRINGE ONE (21:16)
--- NOTE | 2020-12-04 21:30 | NUR ---
MD rounds Dr. Byrne at bedside- updated on patient.
[2020-12-05] VITALS (25 sets, daily range): BP systolic 112–133
--- NOTE | 2020-12-05 00:30 | NUR ---
RN rounds Pt turned, repositioned, gown and linens changed.
--- NOTE | 2020-12-05 02:00 | NUR ---
RN Rounds Pt removed bipap tubing. Tubing re-attached. SpO2 95%.
[2020-12-05] MEDS: LORazepam 2 MG/ML VIAL IVP PRN ×3 (03:39→22:06)
--- NOTE | 2020-12-05 05:00 | NUR ---
RN Rounds Patient removing oxymizer tubing multiple times. Tubing adjusted.
[2020-12-05] MEDS: PIPERACILLIN/TAZO 3.375/DEX-IS 50 ML IV SCH ×4 (06:11→23:30)
--- NOTE | 2020-12-05 06:15 | NUR ---
RN Rounds Patient removing oxymizer tubing multiple times. Tubing adjusted. paged for bilateral wrist restraint order.
--- NOTE | 2020-12-05 07:10 | NUR ---
Closing note Report given to day shift RN
[2020-12-05] MEDS: levalbuterol HCL 0.63 MG/3 ML VIAL.NEB INH SCH ×3 (07:22→21:59)
--- NOTE | 2020-12-05 07:34 | NUR ---
SBAR received, patient remained on bed, afebrile, disoriented, restraint in placed. Tachycardic. On oximizer at 12 L saturating >95%. Skin intact. F/C patent and draining well. Will continue to monitor.
--- NOTE | 2020-12-05 08:06 | NUR ---
SWALLOW/ORAL EVAL [employer] CALLED LEFT A VOICEMAIL WITH
[2020-12-05 08:24] LABS: HEMATOCRIT 29.4 % (36-48); LYMPHOCYTES % (AUTO) 11.3 % (20.5-51.5); MEAN CORPUSCULAR HEMOGLOBIN 24 pg (27-31); MEAN CORPUSCULAR HGB CONC 31 % (32-36); MEAN CORPUSCULAR VOLUME 77 fL (79.0-98.0); MONOCYTES # (AUTO) 0.6 K/uL (0.0-1.0); MONOCYTES % (AUTO) 6.4 % (1.7-9.3); NEUTROPHILS # (AUTO) 7.3 K/uL (1.8-7.7); NEUTROPHILS % (AUTO) 82.3 % (40.0-70.0); PLATELET COUNT (AUTO) 170 K/uL (130-430); RED BLOOD CELL COUNT(AUTO) 3.82 MIL/uL (4.2-6.2); RED CELL DISTRIBUTION WIDTH 17.9 % (9.0-15.0); WHITE BLOOD COUNT (AUTO) 8.8 K/uL (4.8-10.8)
[2020-12-05 08:29] LABS: ALBUMIN 2.6 g/dL (3.4-4.8); CALCIUM 8.2 mg/dL (8.4-11.0); CREATININE 0.75 mg/dL (0.55-1.30); POTASSIUM 3.9 mmol/L (3.5-5.1); TOTAL BILIRUBIN 0.3 mg/dL (0.0-1.0)
--- NOTE | 2020-12-05 08:30 | NUR ---
patients is restless, frequently removing oxygen. restraint in placed per MD. Closed monitoring initiated
[2020-12-05] MEDS: PANTOPRAZOLE SODIUM 40 MG/VIAL (PROTONIX) IVP SCH (08:46)
[2020-12-05] MEDS: DIGOXIN 0.5 MG/2 ML AMP IVP SCH (08:47)
[2020-12-05] MEDS: ENOXAPARIN SODIUM 80 MG/0.8 ML SYRINGE SUBCUT SCH ×2 (08:47→21:21)
[2020-12-05] MEDS: D5NS 1,000 ML IV SCH (08:54)
[2020-12-05] MEDS: methylPREDNISolone SOD SUCC/PF 62.5 MG/ML VIAL IVP SCH ×2 (09:08→21:20)
--- NOTE | 2020-12-05 09:34 | NUR ---
Called Dr. Leon, new order to start patient with TPN with Rx to dose
[2020-12-05] MEDS ORDERED: *TPN PER PHARMACY XX PRN (09:45)
[2020-12-05 09:56] LABS: PHOSPHORUS 3.8 mg/dL (2.7-4.5)
--- NOTE | 2020-12-05 15:29 | NUR ---
Swallow eval done by Francine, recommended to have puree with honey thick liquid diet. MD notified and agreed upon.
--- NOTE | 2020-12-05 15:41 | NUR ---
S.T. SWALLOW EVAL SWALLOW EVAL COMPLETED. MOM PRESENT. PT PRESENTS W/ ML-MOD ORAL DYSPHAGIA FOR PUREE AND HONEY THICK LIQUIDS (PREVIOUS DIET) W/ ML-MOD DELAYED BOLUS TRANSFER. NO S/S OF ASPIRATION. REC: PUREE DIET. THICKENED LIQUIDS (HONEY CONSISTENCY). TSP FEED ONLY. MOM IN AGREEMENT W/ RESULTS AND REC. NURSE VALERIA NOTIFIED.
--- NOTE | 2020-12-05 15:44 | NUR ---
Nutrition F/U RD reviewed pt's current EMR record including diet Hx, physician notes, nursing notes, pertinent labs/meds/procedures, care trends, and care activity. Admission Dx: Acute Respiratory Failure Pt w/: Acute Hypoxemic Respiratory Failure, Aspiration Pneumonia, R/O COVID-19, Hypothyroidism COPD excerbation, Sepsis, Leukocytosis per MD notes. PMH: Atrial fibrillation, Hypothyroidism, Cardiac disorder, anxiety disorder, Acute Respiratory failure, Tracheostomy status, severe intellectual disability or impairment per EMR review. SARS-CoV-2 Ag Rapid 11/29 Negative, PCR 11/29 Negative Current Diet Order/Nutrition Support: NPO x3 days Subjective Info: RD rounded to ICU and spoke w/ pt's RN who reported that pt will be seen by ST for swallow eval this afternoon, and TPN will start later today as well. Per EMR review, ST saw pt yesterday, however, swallow eval was cancelled as pt was requiring BiPAP and was not a candidate for swallow eval at that time; pt was re-evaluated by ST today, and ST rec for pureed, cardiac diet w/ HTL; pt is non-verbal; on 12 L O2 via NC; abd is soft and non-distended w/ active bowel sounds; no BM noted; Armando scale: 15, no PIs noted. Pt is not yet meeting nutritional needs. RD relayed TPN rec to pharmD. Pertinent Medications: solu-medrol, D5%NS at 50 ml/hr (204 calories/day), lopressor, piperacillin/tazobactam Pertinent Labs: Na 148 H, K 3.9 WNL, BG 170 H, BUN 36 H, CRE 0.75 WNL, WBC 8.8 WNL, TG 138 WNL Ht: 5'3" Wt: 176#/80 kg (12/02) -- stable Body Mass Index: 31.17 kg/m2 (obesity) %IBW: 153 [place]/Adjusted Body Weight: 115#/ 52kg; Adj IBW Obesity:130#/ 59kg Recent Weight Change: +wt gain per pt's mother's report. Weight Status: Obese Estimated Energy Expenditure (kcals/day) 5995-6300 Kcal/day (30-35 kcal/kg Adj IBW for sepsis) Estimated Protein Required (g/day) 88-118 gm/day (1.5-2 gm/kg Adj IBW for sepsis) Estimated Fluid Required (l/day) 1.8-2 L/day (1ml/calorie for maintenance) Problem/Etiology/Signs/Symptoms Predicted suboptimal nutrient intake r/t possible dysphagia AEB pending swallow eval and pt's mother's report. *ongoing Altered nutrition related labs r/t medication interaction AEB elevated BG, steroid therapy. *ongoing Expected Outcomes/Goals Monitor diet advancement, appetite and PO intake w/ goal of pt meeting more than 75% of estimated nutritional needs, labs trending WNL, normal GI function, skin integrity/wt maintenance. Dietitian Recommendations * Recommend continuing plans for pureed, cardiac diet w/ HTL as per ST rec 12/05 (ONS Ensure Enlive TID comes standard w/ this diet; provides an additional 1050 kcal/day, 60 gm protein/day) * Encourage adequate PO intakes (at least 50% at each meal time) * Recommend TPN D40%, AA8.5% at 50 ml/hr (goal rate) via central line Provides: 1020 kcal/day, 51 gm protein/day, 1200 ml total volume/day, and GIR: 2 gm CHO/kg/min Meets: 58% of lower end of estimated caloric and protein needs Follow Up High Risk: F/U in 2-3 days
--- NOTE | 2020-12-05 15:49 | NUR ---
Dietitian Recommendations * Recommend continuing plans for pureed, cardiac diet w/ HTL as per ST rec 12/05 (ONS Ensure Enlive TID comes standard w/ this diet; provides an additional 1050 kcal/day, 60 gm protein/day) * Encourage adequate PO intakes (at least 50% at each meal time) * Recommend TPN D40%, AA8.5% at 50 ml/hr (goal rate) via central line Provides: 1020 kcal/day, 51 gm protein/day, 1200 ml total volume/day, and GIR: 2 gm CHO/kg/min Meets: 58% of lower end of estimated caloric and protein needs LP, RD Please refer to Nutrition F/U for details.
--- NOTE | 2020-12-05 19:07 | NUR ---
SBAR endorsed to the PM Shift
--- NOTE | 2020-12-05 19:10 | NUR ---
Opening note Received report from day shift RN.
[2020-12-05] MEDS ORDERED: TPN CENTRAL IV SCH ×8 (21:00)
[2020-12-05] MEDS ORDERED: K PHOS IV SCH ×8 (21:00)
[2020-12-05] MEDS ORDERED: POTASSIUM CHLORIDE IV SCH ×8 (21:00)
[2020-12-05] MEDS ORDERED: [UNRECOGNIZED DRUG - OTHER] IV SCH ×8 (21:00)
[2020-12-05] MEDS: DILTIAZEM HCL 25 MG/5 ML VIAL IVP PRN (22:07)
[2020-12-06] VITALS (23 sets, daily range): BP systolic 94–132
--- NOTE | 2020-12-06 03:00 | NUR ---
RN rounds Patient in bed, continuing to remove bipap tubing. Restraints adjusted, pt repositioned. Spo2 monitoring applied to tele box.
[2020-12-06] MEDS: LORazepam 2 MG/ML VIAL IVP PRN (03:22)
--- NOTE | 2020-12-06 03:30 | NUR ---
RN rounds Patient in bed, continuing to remove bipap tubing. Restraints adjusted, pt medicated.
--- NOTE | 2020-12-06 03:50 | NUR ---
MD communication Dr. Byrne in unit, updated on patient. Orders received.
[2020-12-06] MEDS ORDERED: HALOPERIDOL LACTATE 5 MG/ML VIAL IM ONE (04:00)
[2020-12-06] MEDS: D5NS 1,000 ML IV SCH (04:15)
[2020-12-06] MEDS: PIPERACILLIN/TAZO 3.375/DEX-IS 50 ML IV SCH (05:26)
--- NOTE | 2020-12-06 06:15 | NUR ---
RN Rounds Patient resting in bed, NAD.
--- NOTE | 2020-12-06 07:08 | NUR ---
Closing note Report given to day shift RN.
[2020-12-06 07:32] LABS: BASOPHILS % (AUTO) 0.1 % (0.0-2.0); LYMPHOCYTES % (AUTO) 15.7 % (20.5-51.5); MEAN CORPUSCULAR HEMOGLOBIN 24 pg (27-31); MEAN CORPUSCULAR HGB CONC 31 % (32-36); MEAN CORPUSCULAR VOLUME 76 fL (79.0-98.0); MONOCYTES # (AUTO) 0.3 K/uL (0.0-1.0); MONOCYTES % (AUTO) 4.3 % (1.7-9.3); NEUTROPHILS # (AUTO) 5.3 K/uL (1.8-7.7); NEUTROPHILS % (AUTO) 79.9 % (40.0-70.0); PLATELET COUNT (AUTO) 152 K/uL (130-430); RED CELL DISTRIBUTION WIDTH 17.8 % (9.0-15.0); WHITE BLOOD COUNT (AUTO) 6.6 K/uL (4.8-10.8)
[2020-12-06 07:41] LABS: INR 1.3 (0.8-1.2); PROTHROMBIN TIME 13.9 SECS (9.5-12.5)
[2020-12-06] MEDS: levalbuterol HCL 0.63 MG/3 ML VIAL.NEB INH SCH ×3 (07:49→20:22)
--- NOTE | 2020-12-06 08:41 | NUR ---
INFORMED GONZALES BURNETT THAT THE PATIENT WAS OFF THE TELE MONITOR AND THE O2 SATURATION IS NOT SHOWING HE WILL INFORM RN PATIENT HAS BEEN OFF THE MONITOR FOR 30 MINUTES
[2020-12-06 08:52] LABS: ALANINE AMINOTRANSFERASE 38 U/L (12-78); ALBUMIN 2.2 g/dL (3.4-4.8); ASPARTATE AMINOTRANSFERASE 21 U/L (10-37); CALCIUM 7.9 mg/dL (8.4-11.0); CHLORIDE 106 mmol/L (98-107); CREATININE 0.63 mg/dL (0.55-1.30); GLUCOSE 193 mg/dL (70-99); HEMOGLOBIN 6.2 g/dL (12.0-16.0); PHOSPHORUS 3.3 mg/dL (2.7-4.5); POTASSIUM 3.8 mmol/L (3.5-5.1); SODIUM SERUM 145 mmol/L (136-145); TOTAL BILIRUBIN 0.4 mg/dL (0.0-1.0); UREA NITROGEN, BLOOD 27 mg/dL (8-21)
[2020-12-06 08:53] LABS: HEMATOCRIT 19.9 % (36-48)
[2020-12-06 08:56] LABS: ANION GAP < 3 (5-15); GFR AFRICAN AMERICAN 125 mL/min (>90)
--- NOTE | 2020-12-06 08:58 | NUR ---
PAGED DR. LOZANO PER NURSE DIALED [phone] LEFT A VOICE MESSAGE WAITING FOR CALL BACK
[2020-12-06] MEDS: ENOXAPARIN SODIUM 80 MG/0.8 ML SYRINGE SUBCUT SCH ×2 (09:00→21:49)
--- NOTE | 2020-12-06 09:27 | NUR ---
[address]ND PAGE FOR [address]. LOZANO PER NURSE DIALED [phone] LEFT A VOICE MESSAGE WAITING FOR CALL BACK
[2020-12-06] MEDS: PANTOPRAZOLE SODIUM 40 MG/VIAL (PROTONIX) IVP SCH (11:06)
[2020-12-06] MEDS: methylPREDNISolone SOD SUCC/PF 62.5 MG/ML VIAL IVP SCH ×2 (11:08→21:44)
[2020-12-06] MEDS: DIGOXIN 0.5 MG/2 ML AMP IVP SCH (16:03)
--- NOTE | 2020-12-06 19:15 | NUR ---
change of shift.pt.presents blood transfusion in progress.#1/2 units.pt.presents loc;mental challenged.pt.presents restraints;wrist;rt.wrist. lt.wrist removed per day shift.pt.presents picc line;location rt.bicept.blood transfusion infusing.pt.presents camacho cath intact.pt.receiving o2 therapy via oximizer;rate 8l/min 02-sat%=92%.call light w/in access of the pt.
--- NOTE | 2020-12-06 20:00 | NUR ---
pt.assessed.v/s assessed values note h/r;115bmp,02-sat%=92%.blood transfusion completed.#1/2 units.ns flush initiated. per flacc pain mgx pt.absent facial grimaces/body posturing.camacho cath intact urine content;volume present.pt.assessed for cleanliness.pt.repositioned.call light placed w/in access of the pt. Addendum: 12/06/20 at 2342 by Cortes Gardner RN picc line in tact ns-flush infusing.restraints;rt.wrist in place skin/circulation wnl.
--- NOTE | 2020-12-06 21:00 | NUR ---
2100pmedications administered.v/s noted:h/r;112bmp,o2-sat%=92%.call light w/in access of the pt.
[2020-12-06] MEDS ORDERED: ENOXAPARIN SODIUM 80 MG/0.8 ML SYRINGE ONE (21:53)
--- NOTE | 2020-12-06 22:00 | NUR ---
pt.assessed.v/s assessed note h/r;112bmp,02-sat%=91%.per flacc pain mgx pt.absent facial grimaces/body posturing.camacho cath intact urine content present.picc line intact ns-flush infusing.pt.assessed for cleanliness pt.repositioned.call light placed w/in access of the pt.restramys in place.skin/circulation assessed wnl.
--- NOTE | 2020-12-06 22:30 | NUR ---
i have initiated the blood transfusion #2/2units.v/s assessed per protocol.to remain w pt. for the initial 15mins per protocol. note if adverse reaction manifest. Addendum: 12/07/20 at 0012 by Cortes Gardner RN telephoned icu unit.i apprised of the pt's up-dated info blood transfusion in progress #2/2 units,o2-sat%=94% inquired if pt.continued w abx;zosyn i noted the zosyn d/c 12/06/20. ordered to page ;d to apprise /brigitte of the zosyn d/c and if to continue w abx.
--- NOTE | 2020-12-06 22:45 | NUR ---
initial 15min post initiation of the administration of the blood transfusion.no adverse reaction manifested.
--- NOTE | 2020-12-06 22:47 | NUR ---
PAGED DR. LANTIGUA [phone] SPOKE WITH BRITTNI
[2020-12-07] VITALS (22 sets, daily range): BP systolic 109–156
--- NOTE | 2020-12-07 | NUR ---
pt.assessed.v/s assessed values note hr;115bpm,02-sat%=94%.picc line intact blood transfusion in progress.per flacc pain mgx pt.absent facial grimaces/body posturing.camacho cath intact urine content present.pt.assessed for cleanliness pt.repositioned. restraint rt.wrist in place.skin/circulation assessed wnl.call light placed w/in access of the pt.
[2020-12-07] MEDS: D5NS 1,000 ML IV SCH ×2 (00:15→05:45)
--- NOTE | 2020-12-07 00:20 | NUR ---
PAGED DR. LANTIGUA 2ND CALL [phone] SPOKE WITH KALINA
[2020-12-07] MEDS: levalbuterol HCL 0.63 MG/3 ML VIAL.NEB INH SCH ×4 (01:24→22:17)
--- NOTE | 2020-12-07 01:56 | NUR ---
PAGED DR. LANTIGUA [phone] SPOKE WITH KALINA
--- NOTE | 2020-12-07 02:00 | NUR ---
pt.assessed.v/s assessed values note hr:106bmp,o2-sat%=98%.blood transfusion completed.i have initiated the ns-flush v/s per blood transfusion protocol values wnl.per flacc pain mgx pt.absent facial grimaces/body posturing.pt.assessed for cleanliness. pt.repositioned.restraint wrist;rt.in place skin/circulation wnl.call light placed w/in access of the pt.
[2020-12-07] MEDS ORDERED: PIPERACILLIN/TAZOBACTAM 3.375 GM/VIAL (ZOSYN) IV ONE (03:03)
--- NOTE | 2020-12-07 04:00 | NUR ---
pt.assessed.v/s assessed note h/r;97bpm.o2-sat%=96%.picc line intact iv fluids infusing.camacho cath intact urine content present. pt.assessed for cleanliness.pt.repositioned.noted ;faheem has renewed zosyn:0600a initial dose.per flacc pain mgx pt.absent facial grimaces/body posturing.restraint wrist rt. in place skin/circulation wnl.call light placed w/in access of the pt.
[2020-12-07] MEDS: PIPERACILLIN/TAZO 3.375/DEX-IS 50 ML IV SCH ×2 (05:14→15:28)
--- NOTE | 2020-12-07 06:08 | NUR ---
pt.assessed.v/s assessed note h/r;wnl.per flacc pain mgx pt.absent facial grimaces/body posturing.o2-sat%=96%.picc line intact iv fluids infusing.i have administered zosyn abx ivpb 0600a dose.camacho cath intact urine content present.pt.assessed for cleanliness pt.repositioned.restraint in place.skin/circulation wnl.call light placed w/in access of the pt.
--- NOTE | 2020-12-07 07:35 | NUR ---
RT NOTE: 0735 Pt taken off BiPAP and placed on 6LPM oxymizer. SpO2 is between 93-95%. No resp distress noted. Addendum: 12/07/20 at 0826 by Enedina Salgado RT Amended: Links added.
[2020-12-07] MEDS: methylPREDNISolone SOD SUCC/PF 62.5 MG/ML VIAL IVP SCH ×2 (10:40→20:44)
[2020-12-07] MEDS: PANTOPRAZOLE SODIUM 40 MG/VIAL (PROTONIX) IVP SCH (10:40)
[2020-12-07] MEDS: DIGOXIN 0.5 MG/2 ML AMP IVP SCH (10:41)
[2020-12-07] MEDS ORDERED: METOPROLOL TARTRATE 25 MG TABLET PO ONE (12:00)
[2020-12-07] MEDS: DOCUSATE SODIUM 100 MG/10 ML UDC PO SCH (20:43)
[2020-12-07] MEDS: METOPROLOL TARTRATE 25 MG TABLET PO SCH (20:44)
--- NOTE | 2020-12-07 21:40 | NUR ---
TRANSFER FROM ICU Patient transferred from ICU at this time. Patient stable.
--- NOTE | 2020-12-07 22:00 | NUR ---
pt.transfer to [facility];[id number].rosamaria assigned to receive the pt.i have conveyed the pt's report/info to rosamaria.pt.transfered per protocol monitor,o2-therapy:oximizer:8l/min.pt.transfered in stable status"v/s values wnl 02-sat%=92%mdFredisapprised. picc line camacho cath intact.pt.transferred w restraints wrist bilateral in place.restraints;wrist bilateral;renewed.12/07/20.pt's pertenences blankets x2 transferred w pt.
--- NOTE | 2020-12-08 | NUR ---
ROUNDING NOTES Patient resting in bed - no s/s pain or distress noted. Respirations even and unlabored - head of bed elevated 8L Oxymizer. IV site patent - no s/s redness, infection, or infiltration. Bed locked and in lowest position. Call light within reach. Bilateral wrist restraints in place. Bed alarm on.
[2020-12-08] MEDS: PIPERACILLIN/TAZO 3.375/DEX-IS 50 ML IV SCH ×5 (00:17→23:09)
[2020-12-08] MEDS: levalbuterol HCL 0.63 MG/3 ML VIAL.NEB INH SCH ×4 (04:47→23:50)
[2020-12-08 06:57] LABS: BASOPHILS % (AUTO) 0.1 % (0.0-2.0); EOSINOPHILS % (AUTO) 0.1 % (0.0-4.0); HEMATOCRIT 27.1 % (36-48); HEMOGLOBIN 8.8 g/dL (12.0-16.0); LYMPHOCYTES # (AUTO) 0.9 K/uL (1.0-5.5); LYMPHOCYTES % (AUTO) 8.2 % (20.5-51.5); MEAN CORPUSCULAR HEMOGLOBIN 26 pg (27-31); MEAN CORPUSCULAR HGB CONC 33 % (32-36); MEAN CORPUSCULAR VOLUME 80 fL (79.0-98.0); MONOCYTES # (AUTO) 0.3 K/uL (0.0-1.0); MONOCYTES % (AUTO) 2.5 % (1.7-9.3); NEUTROPHILS # (AUTO) 10.2 K/uL (1.8-7.7); NEUTROPHILS % (AUTO) 89.1 % (40.0-70.0); PLATELET COUNT (AUTO) 150 K/uL (130-430); RED BLOOD CELL COUNT(AUTO) 3.39 MIL/uL (4.2-6.2); RED CELL DISTRIBUTION WIDTH 18.4 % (9.0-15.0); WHITE BLOOD COUNT (AUTO) 11.4 K/uL (4.8-10.8)
[2020-12-08 08:00] VITALS: BP_SYST 148
--- NOTE | 2020-12-08 08:00 | NUR ---
OPENING NOTES AWAKE, NONVERBAL. ON 8 LITERS OF OXYGEN VIA OXYMIZER. O2 SATURATION OF 88-90% AT THIS TIME. NO SIGN OF DISTRESS. KLEIN CATHETER DRAINING YELLOW URINE. FALL AND SAFETY CHECKS DONE. PATIENT DOES NOT KNOW HOW TO USE CALL LIGHT. WILL MONITOR CLOSELY Addendum: 12/09/20 at 0812 by Yenifer Rogers RN WITH BILATERAL SOFT WRIST RESTRAINTS. RELEASED AND RE-APPLIED PATIENT IS RESTLESS.
[2020-12-08] MEDS: PANTOPRAZOLE SODIUM 40 MG/VIAL (PROTONIX) IVP SCH (08:07)
[2020-12-08] MEDS: DIGOXIN 0.5 MG/2 ML AMP IVP SCH (08:07)
[2020-12-08] MEDS: DOCUSATE SODIUM 100 MG/10 ML UDC PO SCH (08:07)
[2020-12-08] MEDS: METOPROLOL TARTRATE 25 MG TABLET PO SCH ×2 (08:08→21:10)
[2020-12-08] MEDS: DILTIAZEM HCL 25 MG/5 ML VIAL IVP PRN (08:23)
[2020-12-08 08:30] VITALS: BP_SYST 117
--- NOTE | 2020-12-08 08:30 | NUR ---
CARDIZEM PATIENT'S HEART RATE WAS AT 142BPM. ADMINISTERED CARDIZEM ORDERED. PATIENT'S HEART RATE WENT DOWN TO 117. WILL MONITOR CLOSELY.
--- NOTE | 2020-12-08 10:30 | NUR ---
ROUNDS AWAKE, FAMILY AT BEDSIDE. HER MOTHER REQUESTED FOR THE BED TO BE TILTED, FACING THE DOOR SO SHE CAN SEE PEOPLE. IT HELPS CALM HER DOWN. RESTRAINTS RELEASED AND RE-APPLIED. SAFETY CHECKS DONE. WILL MONITOR.
[2020-12-08 10:51] LABS: ALBUMIN 2.7 g/dL (3.4-4.8); CALCIUM 8.1 mg/dL (8.4-11.0); CREATININE 0.72 mg/dL (0.55-1.30); POTASSIUM 4.1 mmol/L (3.5-5.1); TOTAL BILIRUBIN 0.7 mg/dL (0.0-1.0)
[2020-12-08] MEDS: methylPREDNISolone SOD SUCC/PF 62.5 MG/ML VIAL IVP SCH ×2 (10:57→21:08)
--- NOTE | 2020-12-08 11:30 | NUR ---
RESTRAINTS DISCONTINUED PATIENT IS CALM. DOES NOT ATTEMPT TO PULL MEDICAL TUBES AT THIS TIME. RESTRAINTS DISCONTINUED.
[2020-12-08 11:33] VITALS: BP_SYST 141
--- NOTE | 2020-12-08 13:16 | NUR ---
Nutrition F/U RD reviewed pt's current EMR record including diet Hx, physician notes, nursing notes, pertinent labs/meds/procedures, care trends, and care activity. Admission Dx: Acute Respiratory Failure, Sepsis Pt w/: Acute Hypoxemic Respiratory Failure, Aspiration Pneumonia, R/O COVID-19, Hypothyroidism COPD exacerbation, Sepsis, Leukocytosis per MD notes. PMH: Atrial fibrillation, Hypothyroidism, Cardiac disorder, anxiety disorder, Acute Respiratory failure, Tracheostomy status, severe intellectual disability or impairment per EMR review. SARS-CoV-2 Ag Rapid 11/29 Negative, PCR 11/29 Negative Current Diet Order/Nutrition Support: Pureed Cardiac diet w/ HTL x3 days Subjective Info: Nutrition consult for Low Armando scale/skin issues received 12/07/[address] bedside visit was deferred d/t high pt load. Per EMR review, pt was seen by ST on 12/05 and noted that pt presents w/ mild to moderate oral dysphagia w/ mild to moderate delayed bolus transfer and rec pureed diet w/ HTL. Pt was transferred out of ICU 12/07, and she remains on oxymizer for SOB. Pt is non-compliant w/ oxymizer and sometimes is found off the mask. Armando scale: 13. Pt w/ ecchymosis to anterior abdomen, anterior groin, left medial thigh, right wrist, 1+ non-pitting bilateral generalized edema per RN notes. Pt w/ soft and nondistended abdomen and w/ active bowel sounds, no BM since admission was recorded. PO intake records incomplete since admission (only 3 dinner intake recorded) and this RD is unable to fully assess oral intake adequacy. Pt w/ no pressure injury and current ONS provides increased protein and VIT for improved skin. Current diet remains appropriate. Pt may benefit from supplemental nutrition support if poor PO intake continues. Pertinent Medications: solu-medrol, Colace liquid, Protonix IV, Ativan. Pertinent Labs: 12/08 Na 140 WNL, K 4.1 WNL, BG 192 H, BUN 25 H, CRE 0.72 WNL, WBC 11.4H Ht: 5'3" Wt: 176#/80 kg (12/02) New wt: 174#/ 79kg (12/07) 2# wt loss in 5 days Body Mass Index: 31.17 kg/m2 (obesity). New BMI: 30.9 kg/m2 (12/07) %IBW: 153 [place]/Adjusted Body Weight: 115#/ 52kg; Adj IBW Obesity:130#/ 59kg Recent Weight Change: +wt gain per pt's mother's report. Weight Status: Obese Estimated Energy Expenditure (kcals/day) 0831-0160 Kcal/day (30-35 kcal/kg Adj IBW for sepsis) Estimated Protein Required (g/day) 88-118 gm/day (1.5-2 gm/kg Adj IBW for sepsis) Estimated Fluid Required (l/day) 1.8-2 L/day (1ml/calorie for maintenance) Problem/Etiology/Signs/Symptoms Predicted suboptimal nutrient intake r/t possible dysphagia AEB pending swallow eval and pt's mother's report. *ongoing Altered nutrition related labs r/t medication interaction AEB elevated BG, steroid therapy. *ongoing Expected Outcomes/Goals Monitor appetite and PO intake w/ goal of pt meeting more than 75% of estimated nutritional needs, labs trending WNL, normal GI function, skin integrity/wt maintenance. Dietitian Recommendations * Recommend continuing pureed, cardiac diet w/ HTL as per ST rec 12/05 (ONS Ensure Enlive TID comes standard w/ this diet; provides an additional 1050 kcal/day, 60 gm protein/day) * Maximum encouragement q meal * Please document all PO and supplement intake q meal. Follow Up High Risk: F/U in 2-3 days
--- NOTE | 2020-12-08 13:25 | NUR ---
Dietitian Recommendations * Recommend continuing pureed, cardiac diet w/ HTL as per ST rec 12/05 (ONS Ensure Enlive TID comes standard w/ this diet; provides an additional 1050 kcal/day, 60 gm protein/day) * Maximum encouragement q meal * Please document all PO and supplement intake q meal. Please see Nutrition F/U note for details. [facility], RD
--- NOTE | 2020-12-08 15:30 | NUR ---
ROUNDS FAMILY AT BEDSIDE. PATIENT IS CALM. NEEDS ATTENDED. SAFETY CHECKS DONE. WILL MONITOR.
[2020-12-08 15:31] VITALS: BP_SYST 126
[2020-12-08] MEDS: D5NS 1,000 ML IV SCH (17:24)
--- NOTE | 2020-12-08 18:55 | NUR ---
CLOSING NOTES RESTING. NO SIGN OF DISTRESS. STILL ON OXYMIZER AT 8 LITERS. ALL NEEDS MET. SAFETY CHECKS DONE. WILL ENDORSE TO NIGHT NURSE.
[2020-12-08 20:00] VITALS: BP_SYST 138
--- NOTE | 2020-12-08 22:00 | NUR ---
ROUNDING NOTES Patient resting in bed - no s/s pain or distress noted. Respirations even and unlabored - head of bed elevated 8L Oxymizer. IV site patent - no s/s redness, infection, or infiltration. Bed locked and in lowest position. Call light within reach - bed alarm on.
[2020-12-09 00:18] VITALS: BP_SYST 136
[2020-12-09] MEDS: PIPERACILLIN/TAZO 3.375/DEX-IS 50 ML IV SCH ×4 (05:07→23:47)
[2020-12-09] MEDS: levalbuterol HCL 0.63 MG/3 ML VIAL.NEB INH SCH ×4 (05:43→19:45)
[2020-12-09] MEDS: D5NS 1,000 ML IV SCH (06:40)
[2020-12-09 08:05] VITALS: BP_SYST 121
--- NOTE | 2020-12-09 08:07 | NUR ---
OPENING NOTES AWAKE, NONVERBAL. ON 8 LITERS OF OXYGEN VIA OXYMIZER. O2 SATURATION OF 88-90% AT THIS TIME. NO SIGN OF DISTRESS. RESPIRATORY THERAPIST AT BEDSIDE WORKING WIT PATIENT. KLEIN CATHETER DRAINING YELLOW URINE. FALL AND SAFETY CHECKS DONE. PATIENT DOES NOT KNOW HOW TO USE CALL LIGHT. WILL MONITOR CLOSELY.
[2020-12-09 09:48] VITALS: BP_SYST 121
--- NOTE | 2020-12-09 10:15 | NUR ---
MED PASS PATIENT WAS ABLE TO TAKE HER MEDICATIONS WELL. FAMILY AT BEDSIDE. WAS UPDATED WITH PLAN OF CARE. ATTENDED TO NEEDS. SAFETY CHECKS DONE. WILL MONITOR.
[2020-12-09] MEDS: DOCUSATE SODIUM 100 MG/10 ML UDC PO SCH (10:19)
[2020-12-09] MEDS: DIGOXIN 0.5 MG/2 ML AMP IVP SCH (10:19)
[2020-12-09] MEDS: PANTOPRAZOLE SODIUM 40 MG/VIAL (PROTONIX) IVP SCH (10:19)
[2020-12-09] MEDS: methylPREDNISolone SOD SUCC/PF 62.5 MG/ML VIAL IVP SCH ×2 (10:20→21:08)
[2020-12-09] MEDS: METOPROLOL TARTRATE 25 MG TABLET PO SCH ×2 (10:20→21:07)
[2020-12-09 11:44] VITALS: BP_SYST 148
--- NOTE | 2020-12-09 12:00 | NUR ---
ROUNDS REPOSITIONED IN BED. FAMILY AT BEDSIDE. ATTENDED TO NEEDS. SAFETY CHECKS DONE. WILL MONITOR.
--- NOTE | 2020-12-09 14:41 | NUR ---
DISCHARGE PLANNING Order for LTAC, pt is BPCI pt therefore not candidate for LTAC.
[2020-12-09 15:28] VITALS: BP_SYST 106
--- NOTE | 2020-12-09 15:30 | NUR ---
WOUND CARE SEEN AND EXAMINED BY WOUND CARE NURSELARON. ELEVATED RIGHT HIP PER RECOMMENDATIONS. SAFETY CHECKS DONE. WILL MONITOR.
--- NOTE | 2020-12-09 18:51 | NUR ---
CLOSING NOTES RESTING. NO SIGN OF DISTRESS. STILL ON OXYMIZER AT 8 LITERS. ALL NEEDS MET. SAFETY CHECKS DONE. WILL ENDORSE TO NIGHT NURSE.
--- NOTE | 2020-12-09 19:45 | NUR ---
OPENING NOTE RECEIVED REPORT FROM DAY RN. PATIENT SITTING IN BED WITH RESPIRATIONS EVEN AND UNLABORED ON 9L O2 VIA OXIMIZER. PT TOLERATING WELL. PT SUCKING ON LEFT THUMB AND REFUSES TO CEASE. ELSIE PICC PATENT AND INTACT RUNNING IVF. DRESSING CLEAN AND DRY. PT HAS MULTIPLE BRUISES THROUGHOUT BODY. VS TAKEN WITH NO FEVER. KLEIN INTACT DRAINING YELLOW FLUID. BED IN LOWEST AND LOCKED POSITION. CALL LIGHT WITHIN REACH. SAFETY/FALL PRECAUTIONS IN PLACE. WILL CONTINUE TO MONITOR.
[2020-12-09 20:00] VITALS: BP_SYST 137
[2020-12-10] MEDS: levalbuterol HCL 0.63 MG/3 ML VIAL.NEB INH SCH ×4 (01:00→19:17)
[2020-12-10 01:25] VITALS: BP_SYST 112
[2020-12-10] MEDS: PIPERACILLIN/TAZO 3.375/DEX-IS 50 ML IV SCH ×4 (06:00→20:31)
--- NOTE | 2020-12-10 06:05 | NUR ---
PICC LINE PULLED OUT PT LAYING IN BED WITH RESPIRATIONS EVEN AND UNLABORED. OXIMIZER OFF OF PATIENT ON BED. HYGIENE CARE DONE. FOUND PICC ALMOST PULLED OUT. CHARGE NURSE CALLED. TRIED TO FLUSH PICC LINES BUT UNABLE TO. PICC LINE OUT. INSERTION SITE COVERED WITH DRESSING AND SECURED WITH TAPE. PT TOLERATED WELL.
[2020-12-10 06:24] LABS: BASOPHILS % (AUTO) 0.1 % (0.0-2.0); HEMATOCRIT 29.8 % (36-48); HEMOGLOBIN 9.5 g/dL (12.0-16.0); LYMPHOCYTES # (AUTO) 1.2 K/uL (1.0-5.5); LYMPHOCYTES % (AUTO) 7.5 % (20.5-51.5); MEAN CORPUSCULAR HEMOGLOBIN 26 pg (27-31); MEAN CORPUSCULAR HGB CONC 32 % (32-36); MEAN CORPUSCULAR VOLUME 82 fL (79.0-98.0); MONOCYTES # (AUTO) 0.4 K/uL (0.0-1.0); MONOCYTES % (AUTO) 2.7 % (1.7-9.3); NEUTROPHILS # (AUTO) 14.8 K/uL (1.8-7.7); NEUTROPHILS % (AUTO) 89.7 % (40.0-70.0); PLATELET COUNT (AUTO) 189 K/uL (130-430); RED BLOOD CELL COUNT(AUTO) 3.65 MIL/uL (4.2-6.2); RED CELL DISTRIBUTION WIDTH 19.1 % (9.0-15.0); WHITE BLOOD COUNT (AUTO) 16.5 K/uL (4.8-10.8)
[2020-12-10 06:27] LABS: CALCIUM 8.7 mg/dL (8.4-11.0); CREATININE 0.86 mg/dL (0.55-1.30); POTASSIUM 4.3 mmol/L (3.5-5.1)
--- NOTE | 2020-12-10 06:28 | NUR ---
IV INSERTED LEFT WRIST IV 20G INSERTED. BLOOD RETURN. FLUSHES WELL.
[2020-12-10] MEDS: DILTIAZEM HCL 25 MG/5 ML VIAL IVP PRN (06:31)
--- NOTE | 2020-12-10 06:31 | NUR ---
ELEVATED HEART RATE HR 142. PRN CARDIZEM ADMINISTERED VIA IVP. PT TOLERATED WELL. WILL CONTINUE TO MONITOR.
[2020-12-10 08:00] VITALS: BP_SYST 148
[2020-12-10] MEDS: DOCUSATE SODIUM 100 MG/10 ML UDC PO SCH (08:30)
[2020-12-10] MEDS: PANTOPRAZOLE SODIUM 40 MG/VIAL (PROTONIX) IVP SCH (08:30)
[2020-12-10] MEDS: METOPROLOL TARTRATE 25 MG TABLET PO SCH ×2 (08:31→20:32)
[2020-12-10] MEDS: DIGOXIN 0.5 MG/2 ML AMP IVP SCH (08:31)
--- NOTE | 2020-12-10 10:24 | NUR ---
REC'D REPORT FROM OFFGOING NURSE ASSESS PT AWAKE NONVERBAL AND SHE DOESN'T FOLLOW SIMPLE COMMANDS HOB ELEVATED LS SL CRACKLES JACOB IS ON RA NO ACUTE DISTRESS NOTED OVERALL APPEARANCES ECCHYMOTIC AREAS ON HER ENTIRE BODY WHICH OFF GOING NURSE STATED THE PT CAME IN LIKE THIS DOES HAVE A KLEIN CATH DRAINING QS CL DARK DENNISE URINE BLE'S NEG FOR EDEMA IS ON THE MONITOR UNCONTROLLABLE AFIB VSS NO DISTRESS NOTED COMFORT AND SAFETY MAINTAINED
[2020-12-10] MEDS: methylPREDNISolone SOD SUCC/PF 62.5 MG/ML VIAL IVP SCH ×2 (11:06→21:03)
[2020-12-10] MEDS: LORazepam 2 MG/ML VIAL IVP PRN (11:12)
[2020-12-10 12:42] VITALS: BP_SYST 131
[2020-12-10] MEDS: D5NS 1,000 ML IV SCH (13:00)
--- NOTE | 2020-12-10 13:00 | NUR ---
PT WAS MED TIME WITH ATIVAN PER FAMILY REQUEST PT KEPT SITTING UP AND THEN DROPPING BUT DOWN ON THE BED MOVING SIDE TO SIDE, MOVING HER HEAD SIDE TO SIDE NOT FOLLOWING DIRECTIONS ENC FAMILY TO WAIT UNTIL PT GET LUNCH BECAUSE THE MEDICATION WILL CALM HER DOWN BUT IT IS POSSIBLE SHE WILL SLEEPY AND DROWSY TO EAT THE MED WAS EFFECTIVE AND PT IS SLEEPING UNABLE TO EAT LUNCH COMFORT AND SAFETY MAINTAINED Addendum: 12/10/20 at 1451 by Benjamín Salcedo RN MED TIME ONE AT 1112
[2020-12-10 15:20] VITALS: BP_SYST 121
[2020-12-10 16:00] VITALS: BP_SYST 120
[2020-12-10 20:00] VITALS: BP_SYST 124
--- NOTE | 2020-12-10 20:00 | NUR ---
Opening notes Pt alert, awake, non verbal. VSS, no s/s distress noted, pt on oxymizer. Pt HOB elevated and fed pt pureed diet. Tolerated diet well. IVF infusing at ordered rate L. wrist clear and patent. Talavera catheter secured, draining alexandru urine. Bed low, locked, siderails up x4, alarm on. To monitor.
--- NOTE | 2020-12-10 22:18 | NUR ---
rounds Dr. Chavez landaverde.
[2020-12-11 00:30] VITALS: BP_SYST 139
[2020-12-11] MEDS: levalbuterol HCL 0.63 MG/3 ML VIAL.NEB INH SCH ×4 (01:22→19:36)
[2020-12-11] MEDS: PIPERACILLIN/TAZO 3.375/DEX-IS 50 ML IV SCH ×4 (03:09→17:06)
[2020-12-11] MEDS: D5NS 1,000 ML IV SCH ×2 (04:15→15:38)
[2020-12-11 05:52] LABS: BASOPHILS % (AUTO) 0.1 % (0.0-2.0); EOSINOPHILS % (AUTO) 0.1 % (0.0-4.0); HEMATOCRIT 26.3 % (36-48); HEMOGLOBIN 8.4 g/dL (12.0-16.0); LYMPHOCYTES % (AUTO) 7.5 % (20.5-51.5); MEAN CORPUSCULAR HEMOGLOBIN 26 pg (27-31); MEAN CORPUSCULAR HGB CONC 32 % (32-36); MEAN CORPUSCULAR VOLUME 82 fL (79.0-98.0); MONOCYTES # (AUTO) 0.3 K/uL (0.0-1.0); MONOCYTES % (AUTO) 2.4 % (1.7-9.3); NEUTROPHILS % (AUTO) 89.9 % (40.0-70.0); PLATELET COUNT (AUTO) 173 K/uL (130-430); RED CELL DISTRIBUTION WIDTH 19.4 % (9.0-15.0); WHITE BLOOD COUNT (AUTO) 13.3 K/uL (4.8-10.8)
--- NOTE | 2020-12-11 06:15 | NUR ---
Closing notes Pt awake, non verbal, no s/s distress noted, pt on oxymizer 6L. IVF infusing at ordered rate L. wrist 24G clear and patent. Talavera catheter secured, draining to gravity, alexandru urine. Pt did not sleep much during the night. Bed low, locked, siderails up x4, alarm on. To endorse to AM nurse.
[2020-12-11 07:39] LABS: CALCIUM 8.4 mg/dL (8.4-11.0); CREATININE 0.67 mg/dL (0.55-1.30); PHOSPHORUS 3.4 mg/dL (2.7-4.5); POTASSIUM 4.2 mmol/L (3.5-5.1)
[2020-12-11 08:00] VITALS: BP_SYST 152
--- NOTE | 2020-12-11 08:00 | NUR ---
am notes pt in bed. awake non verbal. on oximizer 4 l saturation 97%. res even and unlabored.vitals stable left wrist #[id number] patent. flushed well. no s/s of infiltration noted.ivf infusing well.. safety/fall precautions in place. bed locked and in low position. bed alarm on. kept comfortable.. hob elevated. no s/s of aspiration noted. will continue to monitor
[2020-12-11] MEDS: METOPROLOL TARTRATE 25 MG TABLET PO SCH ×2 (09:11→21:03)
[2020-12-11] MEDS: DOCUSATE SODIUM 100 MG/10 ML UDC PO SCH (09:11)
[2020-12-11] MEDS: PANTOPRAZOLE SODIUM 40 MG/VIAL (PROTONIX) IVP SCH (09:12)
[2020-12-11] MEDS: DIGOXIN 0.5 MG/2 ML AMP IVP SCH (09:12)
[2020-12-11] MEDS: predniSONE 10 MG TABLET PO SCH (09:12)
[2020-12-11] MEDS ORDERED: methylPREDNISolone SOD SUCC/PF 62.5 MG/ML VIAL IVP SCH (10:00)
[2020-12-11 12:43] VITALS: BP_SYST 132
--- NOTE | 2020-12-11 14:15 | NUR ---
engineer operations and maintenance rounds pt stable mother st bed side. .pt seen by SAMUEL mcmanus seen ecchymosis / dark red/purple discoloration on left thigh/perineal area. new order received. not in acute distress. will continue to monitor
--- NOTE | 2020-12-11 15:19 | NUR ---
CM Note: Discussed dcp with mother/Marce: snf vs returning back to B/C with po abx. The pt is on iv abx and oxygen 4L NC today. CXR : persistent Yosi infiltrates and effusion. Should the pt requires iv abx and O2, mother agreed with snf per Regional officer/[place] [facility]. Dr Leon and Neha,[employer] AIDE made aware.
--- NOTE | 2020-12-11 15:45 | NUR ---
Nutrition F/U RD reviewed pt's current EMR record including diet Hx, physician notes, nursing notes, pertinent labs/meds/procedures, care trends, and care activity. Admission Dx: Acute Respiratory Failure, Sepsis Pt w/: Acute Hypoxemic Respiratory Failure, Aspiration Pneumonia, R/O COVID-19, Hypothyroidism COPD exacerbation, Sepsis, Leukocytosis per MD notes. PMH: Atrial fibrillation, Hypothyroidism, Cardiac disorder, anxiety disorder, Acute Respiratory failure, Tracheostomy status, severe intellectual disability or impairment per EMR review. SARS-CoV-2 Ag Rapid 11/29 Negative, PCR 11/29 Negative Current Diet Order/Nutrition Support: Pureed, Cardiac diet w/ HTL x6 days Subjective Info: RD visited pt at bedside w/ mother present. She stated that pt has been eating very well, however, has not been receiving thickener regularly on meal trays. RD reassured pt's mother that they will be regularly placed on trays as per pt's diet order. RD notified [facility] staff to provide BLD. Bedscale wt taken: 157#/71.5 kg noted, likely inaccurate d/t linens/bedding. Pt's mother reported pt's UBW: 140#. RN stated that pt has new L thigh ecchymosis likely r/t lovenox use when pt was in ICU. Per EMR review, pt is on 4 L O2 via oximizer; PO intake average of 71% x6 meals; active bowel sounds; last BM x1 12/11; Armando scale: 15, no PIs noted. Current diet remains adequate/appropriate, and pt's appetite seems to be improving. Pertinent Medications: solu-medol, colace, protonix IV, D5%NS at 50 ml/hr (204 kcal/day) Pertinent Labs: Na 134 L, K 4.2 WNL, BG 216 H, BUN 24 H, WBC 13.3 H Ht: 5'3" Wt: 176#/80 kg (12/02) New wt: 174#/ 79kg (12/07) 2# wt loss in 5 days Body Mass Index: 31.17 kg/m2 (obesity). New BMI: 30.9 kg/m2 (12/07) %IBW: 153 [place]/Adjusted Body Weight: 115#/ 52kg; Adj IBW Obesity:130#/ 59kg Recent Weight Change: +wt gain per pt's mother's report. Weight Status: Obese Estimated Energy Expenditure (kcals/day) 2558-0142 Kcal/day (30-35 kcal/kg Adj IBW for sepsis) Estimated Protein Required (g/day) 88-118 gm/day (1.5-2 gm/kg Adj IBW for sepsis) Estimated Fluid Required (l/day) 1.8-2 L/day (1ml/calorie for maintenance) Problem/Etiology/Signs/Symptoms Predicted suboptimal nutrient intake r/t possible dysphagia AEB pending swallow eval and pt's mother's report. *ongoing Altered nutrition related labs r/t medication interaction AEB elevated BG, steroid therapy. *ongoing Expected Outcomes/Goals Monitor appetite and PO intake w/ goal of pt meeting more than 75% of estimated nutritional needs, labs trending WNL, normal GI function, skin integrity/wt maintenance. Dietitian Recommendations * Recommend continuing pureed, cardiac diet w/ HTL as per ST rec 12/05 (ONS Ensure Enlive TID comes standard w/ this diet; provides an additional 1050 kcal/day, 60 gm protein/day) Follow Up Moderate Risk: F/U in 3-5 days
--- NOTE | 2020-12-11 15:53 | NUR ---
Dietitian Recommendations * Recommend continuing pureed, cardiac diet w/ HTL as per ST rec 12/05 (ONS Ensure Enlive TID comes standard w/ this diet; provides an additional 1050 kcal/day, 60 gm protein/day) LP, RD Please refer to Nutrition F/U for details.
--- NOTE | 2020-12-11 16:14 | NUR ---
CM note: faxed the snf referral per dr Leon to [facility]. Addendum: 12/11/20 at 1631 by Paola Card RN >> Per Milly/[facility]: the pt is accepted , given to room #5. Dr Leon made aware. I requested the md to call nurse with final dc order and iv meds as needed. CM will notify, the regional officer and mother in am.
[2020-12-11 16:33] VITALS: BP_SYST 133
--- NOTE | 2020-12-11 16:40 | NUR ---
iv insertion old iv beeping occluded. new iv line started on rt hand#22. with good blood return. flushed well. no s/s of infiltration noted.pt tolerated well. mother at bed side.
--- NOTE | 2020-12-11 18:39 | NUR ---
closing notes pt in bed. awake non verbal. continue on oximizer 4 l saturation 97%. res even and unlabored.vitals stable .rt ivsite patent. no s/s of infiltration noted.ivf infusing well.. safety/fall precautions in place. bed locked and in low position. bed alarm on. kept comfortable.. hob elevated. no s/s of aspiration noted. fed pt. pt ate 100%/needs attnded throughout shift
--- NOTE | 2020-12-11 19:15 | NUR ---
OPENING NOTES: Received patient report from morning shift nurse. Patient in bed, breathing evenly and nonlabored on 4L of O2 via oximyzer, no s/s of distress, HOB elevated. Patient has an IV on the right wrist 22G, patent, benign, and flushing. Fall/safety precaution. Patient near nursing station. Will continue to monitor.
[2020-12-11 20:00] VITALS: BP_SYST 163
[2020-12-12 00:30] VITALS: BP_SYST 152
[2020-12-12] MEDS ORDERED: ENOXAPARIN SODIUM 80 MG/0.8 ML SYRINGE SUBCUT SCH (00:30)
[2020-12-12] MEDS: PIPERACILLIN/TAZO 3.375/DEX-IS 50 ML IV SCH ×5 (00:42→23:59)
--- NOTE | 2020-12-12 01:00 | NUR ---
IV INSERTION: Patient pulled out IV from right wrist 22G. Reinserted IV on the right forearm 22G, patent, benign, and flushing.
[2020-12-12] MEDS: levalbuterol HCL 0.63 MG/3 ML VIAL.NEB INH SCH ×4 (01:02→19:34)
[2020-12-12 07:31] LABS: BASOPHILS % (AUTO) 0.2 % (0.0-2.0); EOSINOPHILS # (AUTO) 0.3 K/uL (0.0-0.4); HEMATOCRIT 29.2 % (36-48); HEMOGLOBIN 9.3 g/dL (12.0-16.0); LYMPHOCYTES # (AUTO) 2.6 K/uL (1.0-5.5); LYMPHOCYTES % (AUTO) 16.1 % (20.5-51.5); MEAN CORPUSCULAR HEMOGLOBIN 26 pg (27-31); MEAN CORPUSCULAR HGB CONC 32 % (32-36); MEAN CORPUSCULAR VOLUME 82 fL (79.0-98.0); MONOCYTES # (AUTO) 0.8 K/uL (0.0-1.0); MONOCYTES % (AUTO) 5.3 % (1.7-9.3); NEUTROPHILS # (AUTO) 12.2 K/uL (1.8-7.7); NEUTROPHILS % (AUTO) 76.4 % (40.0-70.0); PLATELET COUNT (AUTO) 229 K/uL (130-430); RED BLOOD CELL COUNT(AUTO) 3.56 MIL/uL (4.2-6.2); RED CELL DISTRIBUTION WIDTH 19.8 % (9.0-15.0); WHITE BLOOD COUNT (AUTO) 15.9 K/uL (4.8-10.8)
[2020-12-12 08:00] VITALS: BP_SYST 143
--- NOTE | 2020-12-12 08:00 | NUR ---
Initial notes In bed awake, non verbal. on oximixer 4L, No distress, afebrile. IVF infusing well. Safety precaution observed. bed alarm on, will monitor.
[2020-12-12 08:07] LABS: CALCIUM 8.6 mg/dL (8.4-11.0); CREATININE 0.72 mg/dL (0.55-1.30); POTASSIUM 4.5 mmol/L (3.5-5.1)
[2020-12-12] MEDS ORDERED: ENOXAPARIN SODIUM 60 MG/0.6 ML SYRINGE SUBCUT SCH (09:00)
[2020-12-12] MEDS: DOCUSATE SODIUM 100 MG/10 ML UDC PO SCH (09:57)
[2020-12-12] MEDS: METOPROLOL TARTRATE 25 MG TABLET PO SCH ×2 (10:06→20:42)
[2020-12-12] MEDS: predniSONE 10 MG TABLET PO SCH (10:07)
[2020-12-12] MEDS: PANTOPRAZOLE SODIUM 40 MG/VIAL (PROTONIX) IVP SCH (10:07)
[2020-12-12] MEDS: DIGOXIN 0.5 MG/2 ML AMP IVP SCH (10:08)
[2020-12-12] MEDS: ENOXAPARIN SODIUM 60 MG/0.6 ML SYRINGE SUBCUT SCH ×2 (10:24→20:43)
[2020-12-12 11:32] VITALS: BP_SYST 148
--- NOTE | 2020-12-12 12:00 | NUR ---
Note family at bedside, feeding patient. Family aware of patient's has a bed in [facility], family stated that need to see the place first.
--- NOTE | 2020-12-12 12:30 | NUR ---
JUNITO note: met with Marce/mother at bedside, notified pt is accepted at [facility]. She wants to tour the facility first and to get to approval from [place] [facility], [facility] sales representative. Marce and Imelda SONG to his cell phone notifying the dcp. JUNITO will f/u. Addendum: 12/12/20 at 1430 by Paola Card RN >> Returning call from [place], he concurred with the transfer to [facility].
--- NOTE | 2020-12-12 16:00 | NUR ---
Notes resting, family at bedside. repositioned for comfort.
[2020-12-12 16:08] VITALS: BP_SYST 153
--- NOTE | 2020-12-12 18:41 | NUR ---
Closing Note Patient is lying in bed with aunt at bedside. No signs or symptoms of pain or distress. Infusing D5 NS at 50 mL/hr. Patient occasionally restless, calm at the moment. Patient's mom is looking for a SNF for placement, will follow up tomorrow. All needs met. Encouraged family to call as needed. Bed locked in lowest position with alarm on.
--- NOTE | 2020-12-12 19:15 | NUR ---
OPENING NOTE BEDSIDE REPORT RECEIVED FROM DAYSHIFT NURSE. PATIENT RECEIVED LYING IN BED, AWAKE, NO S/S OF ACUTE DISTRESS. BREATHING EVEN AND UNLABORED. HOB RAISED. IVF INFUSING WELL. KLEIN ATTACHED, SECURED, AND DRAINING BY GRAVITY. BED ALARM ON. WILL CONTINUE TO MONITOR.
[2020-12-12 20:00] VITALS: BP_SYST 136
[2020-12-12] MEDS: D5NS 1,000 ML IV SCH (20:42)
--- NOTE | 2020-12-13 | NUR ---
ROUNDS PATIENT IN BED, EYES CLOSED. NO SIGNS OF DISCOMFORT NOTED. BED ALARM ON. WILL CONTINUE TO MONITOR.
[2020-12-13 00:27] VITALS: BP_SYST 143
[2020-12-13] MEDS: levalbuterol HCL 0.63 MG/3 ML VIAL.NEB INH SCH ×4 (04:21→20:18)
[2020-12-13] MEDS: PIPERACILLIN/TAZO 3.375/DEX-IS 50 ML IV SCH ×2 (05:11→11:30)
--- NOTE | 2020-12-13 06:42 | NUR ---
CLOSING NOTE PATIENT IN BED, ASLEEP, NO S/S OF ACUTE DISTRESS NOTED. BREATHING EVEN AND UNLABORED. HOB RAISED, OXYMIZER ATTACHED, ON 4L OF OXYGEN. IVF INFUSING WELL, IV SITE PATENT, NO SIGNS OF INFILTRATION OR INFECTION NOTED. KLEIN ATTACHED, SECURED, AND DRAINING BY GRAVITY. ALL NEEDS MET THROUGHOUT SHIFT. FALL, SAFETY, AND SEIZURE PRECAUTIONS MAINTAINED THROUGHOUT SHIFT. WILL CONTINUE TO MONITOR UNTIL PATIENT CARE IS ENDORSED TO ONCOMING DAYSHIFT NURSE.
[2020-12-13 06:51] LABS: BASOPHILS % (AUTO) 0.2 % (0.0-2.0); EOSINOPHILS # (AUTO) 0.3 K/uL (0.0-0.4); EOSINOPHILS % (AUTO) 2.1 % (0.0-4.0); HEMATOCRIT 31.3 % (36-48); LYMPHOCYTES # (AUTO) 1.5 K/uL (1.0-5.5); LYMPHOCYTES % (AUTO) 10.8 % (20.5-51.5); MEAN CORPUSCULAR HEMOGLOBIN 26 pg (27-31); MEAN CORPUSCULAR HGB CONC 32 % (32-36); MEAN CORPUSCULAR VOLUME 82 fL (79.0-98.0); MONOCYTES # (AUTO) 0.6 K/uL (0.0-1.0); MONOCYTES % (AUTO) 4.1 % (1.7-9.3); NEUTROPHILS # (AUTO) 11.2 K/uL (1.8-7.7); NEUTROPHILS % (AUTO) 82.8 % (40.0-70.0); PLATELET COUNT (AUTO) 233 K/uL (130-430); RED BLOOD CELL COUNT(AUTO) 3.82 MIL/uL (4.2-6.2); RED CELL DISTRIBUTION WIDTH 19.8 % (9.0-15.0); WHITE BLOOD COUNT (AUTO) 13.5 K/uL (4.8-10.8)
[2020-12-13 07:25] LABS: CALCIUM 8.6 mg/dL (8.4-11.0); CREATININE 0.62 mg/dL (0.55-1.30); POTASSIUM 3.5 mmol/L (3.5-5.1)
[2020-12-13 08:00] VITALS: BP_SYST 158
--- NOTE | 2020-12-13 08:00 | NUR ---
Initial Note Patient sitting up in bed, no signs or symptoms of pain or distress. Family at bedside. Occasional involuntary twitching. Patient gnaws on thumb for comfort. Educated family and patient on protecting skin from breakdown. Provided lito care with assist and repositioned for comfort. Bed locked in lowest position with alarm on. Call light in reach for family, encouraged to call.
[2020-12-13] MEDS: DOCUSATE SODIUM 100 MG/10 ML UDC PO SCH (08:45)
[2020-12-13] MEDS: PANTOPRAZOLE SODIUM 40 MG/VIAL (PROTONIX) IVP SCH (08:46)
[2020-12-13] MEDS: predniSONE 10 MG TABLET PO SCH (08:46)
[2020-12-13] MEDS: DIGOXIN 0.5 MG/2 ML AMP IVP SCH (08:46)
[2020-12-13] MEDS: METOPROLOL TARTRATE 25 MG TABLET PO SCH ×2 (08:47→22:24)
[2020-12-13] MEDS: ENOXAPARIN SODIUM 60 MG/0.6 ML SYRINGE SUBCUT SCH (08:54)
[2020-12-13 11:23] VITALS: BP_SYST 156
--- NOTE | 2020-12-13 11:38 | NUR ---
Case mgt: Met with pt's mother at bedside-Marce Baltazar-she indicates she wasn't satisfied with [facility] and asked me to fax snf referral to Kelly at [facility]--I spoke with Kelly at [phone]-she said she s/w Marce and wants me to fax snf referral to [phone]--aubrie vuong- RN
--- NOTE | 2020-12-13 12:00 | NUR ---
Notes Patient awake and alert, oriented to self only. Non-verbal. Family at bedside. Patient occasionally restless. Safety precautions in place and family educated. Call light in reach, bed in lowest position with alarm on and side rails up. Encouraged to call as needed.
--- NOTE | 2020-12-13 12:53 | NUR ---
Kelly at [facility] received packet and is reviewing it--I faxed current v/s to her-JONAS RN
--- NOTE | 2020-12-13 13:23 | NUR ---
Rec'd orders for home health for IV Zosyn Q 8hrs, Nursing safety eval and PT, home 02--I called [facility] at [phone]--fax#[phone]-I spoke with Jimmy who indicated he cannot provide the service as IV abx Q 8 hrs is more SNF level of care, and that 02 would be very difficult to arrange on a weekend-- RN
--- NOTE | 2020-12-13 14:20 | NUR ---
Case mgt: Per Kelly at [facility], pt is accepted but she can take pt tomorrow 12/14/20--Call her in am at [phone] for bed#. Renetta, bellows charger assembler informed and instructed to call Kelly tomorrow am for a bed in case our rn case manager hospice not available tomorrow. Daughter Marce said pt's PCP is Dr. Rizwan Devine in [place] and she is aware pt will transfer to [facility] tomorrow-Dispo code will be 03. JONAS GARZA
[2020-12-13 15:42] VITALS: BP_SYST 147
--- NOTE | 2020-12-13 16:13 | NUR ---
Notes Patient awake, sitting up in bed with family present. Accidentally removed IV. Patient will have PICC line inserted today. No pain or distress. Blood pressure is within normal limits. Safety precautions in place. Call light within reach, encouraged family to call.
[2020-12-13] MEDS ORDERED: RIVAROXABAN 10 MG TABLET PO SCH (18:00)
--- NOTE | 2020-12-13 18:30 | NUR ---
Notes No IV access at this time. Unable to give IV antibiotics, will endorse to night nurse. PICC line nurse to insert midline but patient agitated. notified and received orders. Will carry out.
[2020-12-13] MEDS ORDERED: LORazepam 2 MG/ML VIAL IM ONE (18:45)
--- NOTE | 2020-12-13 19:05 | NUR ---
Notes Patient sitting up in bed, no pain or distress. PICC line nurse to insert midline following Ativan administration. Safety precautions in place. Will endorse to night nurse.
[2020-12-13 21:00] VITALS: BP_SYST 139
--- NOTE | 2020-12-13 22:15 | NUR ---
Patient sitting up in bed Respirations Remain Regular also unlabored .
--- NOTE | 2020-12-14 00:04 | NUR ---
HIGH ALERT NOTE: Called Dr. MARTA DESAI called back at 2400 identified within the medical roster to verify physician authenticity for Ativan 1 mg IM .
[2020-12-14] MEDS: PIPERACILLIN/TAZO 3.375/DEX-IS 50 ML IV SCH ×3 (01:20→12:33)
[2020-12-14 01:21] VITALS: BP_SYST 144
[2020-12-14] MEDS: D5NS 1,000 ML IV SCH ×2 (01:21→12:33)
--- NOTE | 2020-12-14 03:25 | NUR ---
LORAZEPAM 1 MG IM helpful , for PICC LINE NURSE , patient Resting .
[2020-12-14] MEDS: levalbuterol HCL 0.63 MG/3 ML VIAL.NEB INH SCH ×2 (07:07→13:00)
[2020-12-14 08:12] LABS: BASOPHILS % (AUTO) 0.4 % (0.0-2.0); EOSINOPHILS # (AUTO) 0.3 K/uL (0.0-0.4); EOSINOPHILS % (AUTO) 2.2 % (0.0-4.0); HEMATOCRIT 33.6 % (36-48); HEMOGLOBIN 10.7 g/dL (12.0-16.0); LYMPHOCYTES # (AUTO) 1.4 K/uL (1.0-5.5); LYMPHOCYTES % (AUTO) 12.3 % (20.5-51.5); MEAN CORPUSCULAR HEMOGLOBIN 26 pg (27-31); MEAN CORPUSCULAR HGB CONC 32 % (32-36); MEAN CORPUSCULAR VOLUME 82 fL (79.0-98.0); MONOCYTES # (AUTO) 0.5 K/uL (0.0-1.0); MONOCYTES % (AUTO) 4.1 % (1.7-9.3); NEUTROPHILS # (AUTO) 9.3 K/uL (1.8-7.7); PLATELET COUNT (AUTO) 251 K/uL (130-430); RED BLOOD CELL COUNT(AUTO) 4.07 MIL/uL (4.2-6.2); RED CELL DISTRIBUTION WIDTH 21.3 % (9.0-15.0); WHITE BLOOD COUNT (AUTO) 11.5 K/uL (4.8-10.8)
[2020-12-14 08:30] VITALS: BP_SYST 136
[2020-12-14] MEDS ORDERED: DIGOXIN 0.125 MG TABLET PO SCH (09:00)
[2020-12-14 10:04] VITALS: BP_SYST 136
[2020-12-14] MEDS: predniSONE 10 MG TABLET PO SCH (11:04)
[2020-12-14] MEDS: METOPROLOL TARTRATE 25 MG TABLET PO SCH (11:06)
[2020-12-14] MEDS: DOCUSATE SODIUM 100 MG/10 ML UDC PO SCH (11:07)
[2020-12-14] MEDS: PANTOPRAZOLE SODIUM 40 MG/VIAL (PROTONIX) IVP SCH (11:07)
[2020-12-14 11:30] LABS: CREATININE 0.68 mg/dL (0.55-1.30); POTASSIUM 4.2 mmol/L (3.5-5.1)
[2020-12-14 11:38] VITALS: BP_SYST 110
[2020-12-14 14:16] VITALS: BP_SYST 110
[2020-12-14 14:28] VITALS: BP_SYST 110
--- NOTE | 2020-12-14 15:00 | NUR ---
D/C Patient Patient is AOx1. Patient's mom given medication reconciliation form and D/C instructions. Exit Care provided. Patient's mom verbalized understanding. MD discussed with patient the results and treatment provided. Patient in stable condition, ID band removed. Patient keeps the midline on LUE because patient needs 2 more days of IV zosyn. Patient has the camacho Rx of given. Patient educated on pain management. All belongings sent with patient's mom. Report given to Ashlyn Plata RN at 1405. [facility] transport picked up patient at 1445. discharge package given to the transport.
--- NOTE | 2020-12-15 08:43 | NUR ---
Disposition 03
== END 2020-12-14 16:56 | DRG 871 ==
LOC: SED 14:03 → SIC 17:04 → STU 12-03 11:07 → SIC 12-03 11:10 → STU 12-07 21:25 → SMU 12-13 13:41
PROVIDERS: ADMIT Internal Medicine; ATTEND Internal Medicine
PROC: 5A09357 Assistance with Respiratory Ventilation, Less than 24 Consecutive Hours, Continuous Positive Airway Pressure (ICD-10-PCS; 2020-11-29)
PROC: 5A09457 Assistance with Respiratory Ventilation, 24-96 Consecutive Hours, Continuous Positive Airway Pressure (ICD-10-PCS; 2020-11-30)
PROC: 5A09357 Assistance with Respiratory Ventilation, Less than 24 Consecutive Hours, Continuous Positive Airway Pressure (ICD-10-PCS; 2020-12-02)
PROC: 5A09457 Assistance with Respiratory Ventilation, 24-96 Consecutive Hours, Continuous Positive Airway Pressure (ICD-10-PCS; 2020-12-04)
PROC: 30233N1 Transfusion of Nonautologous Red Blood Cells into Peripheral Vein, Percutaneous Approach (ICD-10-PCS; principal; 2020-12-06)
DX: A41.9 Sepsis, unspecified organism (principal); J96.01 Acute respiratory failure with hypoxia; J96.02 Acute respiratory failure with hypercapnia; J18.9 Pneumonia, unspecified organism; I48.20 Chronic atrial fibrillation, unspecified; J44.1 Chronic obstructive pulmonary disease with (acute) exacerbation; J44.0 Chronic obstructive pulmonary disease with (acute) lower respiratory infection; E87.2 Acidosis; I82.402 Acute embolism and thrombosis of unspecified deep veins of left lower extremity; F72 Severe intellectual disabilities; E03.9 Hypothyroidism, unspecified; F41.9 Anxiety disorder, unspecified; T38.0X5A Adverse effect of glucocorticoids and synthetic analogues, initial encounter; D63.8 Anemia in other chronic diseases classified elsewhere; Z20.822 Contact with and (suspected) exposure to COVID-19; I11.0 Hypertensive heart disease with heart failure; I50.9 Heart failure, unspecified; Z79.82 Long term (current) use of aspirin; Z79.899 Other long term (current) drug therapy; Y92.89 Other specified places as the place of occurrence of the external cause; Z87.01 Personal history of pneumonia (recurrent); Z87.440 Personal history of urinary (tract) infections
CPT/HCPCS: 36415; 36600; 71045; 71275; 76376; 80048; 80053; 80162; 80202; 81000; 82272; 82728; 82803-TC; 83605; 83615; 83690; 83735; 83880; 84100; 84439; 84443; 84478; 84484; 85025; 85379; 85610-TC; 85730-TC; 86140; 86886; 86900; 86901; 86920; 87040-TC; 87081; 87086; 92610-GN; 93005; 93306; 93970; 93971; 94640; 94660; 94760; C9113; G0378; J0456; J0610; J1160; J1630; J1650; J1940; J2060; J2543; J2930; J3370; J3480; J3490; J7050; J7512; J7614; P9021; Q9967; U0003